=== PATIENT | female | born 1945 | race Caucasian/White ===

== ENCOUNTER 2016-03-30 10:13 | Inpatient (IN) | payer OTHER ==
[~2016-03-30] VITALS: Ht 157.5 cm; Wt 58.5 kg
[~2016-03-30 10:13] MED LIST: ALBUTEROL2.5 MG/3 M INH; ASPIRIN EC81 M1 PO; ATELVIA PO; ATIVAN0.5 M1 PO; BIOTIN2500 MCG PO; COZAAR25 M1 PO; CYCLOBENZAPRINE10 M3 PO; DAILY MULTIPLE1 EACH PO; DILAUDID2 MG PO; FENOFIBRATE160 M1 PO; FLEXERIL10 MG PO; FUROSEMIDE20 M1 PO; HYDROMORPHONE HC2 MG PO; LEVOTHYROXIN0.025 MG PO; LEVOTHYROXIN0.088 M1 PO; LEVOTHYROXINE75 MCG PO; LOSARTAN POTASS25 MG PO; LYRICA100 MG PO; LYRICA150 MG PO; LYRICA75 MG PO; METOPROLOL SUCC50 M2 PO; NAPROXEN500 MG PO; OMEGA-3 300 MG-1 SGL PO; OMEGA-31 SGL PO; OXYCONTIN10 MG PO; PERCOCET 325 MG1 TA2 PO; PREDNISONE10 M2 PO; PREDNISONE10 MG PO; PREDNISONE2.5 MG PO; PROAIR HFA8.5 GM INH; RITE AID KRILL500 MG PO; SELENIUM200 MCG PO; SPIRIVA18 MCG INH; STOOL SOFTENER100 M3 PO; SYMBICORT 16010.2 GM INH; URSODIOL300 M1 PO; URSODIOL300 MG PO; URSODIOL500 MG PO; VALIUM5 M1 PO; VITAMIN C500 M6 PO; VITAMIN D2 PO; VITAMIN D250000 UNIT PO; WELCHOL 625 MG625 MG PO; ZETIA10 M1 PO
--- NOTE | 2016-03-30 10:26 | ED DYSPNEA/ASTHMA COMPLAINT ---
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 Source: patient Exam Limitations: no limitations Vital Signs & Intake/Output Vital Signs & Intake/Output Vital Signs Date Time Temp Pulse Resp B/P Pulse O2 O2 Flow FiO2 Ox Delivery Rate 04/01 1008 97 Nasal 2.0L Cannula 04/01 0832 81 144/80 04/01 0832 81 144/80 04/01 0825 97.6 81 18 144/80 95 Nasal 2.0L Cannula 04/01 0007 98.2 81 18 106/70 97 Nasal 2.0L Cannula 04/01 0000 Nasal 2.0L Cannula 03/31 2043 96 Nasal 2.0L Cannula 03/31 1659 96 Nasal 2.0L Cannula 03/31 1554 98.2 75 19 102/62 96 Nasal 2.0L Cannula ED Intake and Output 04/01 0000 03/31 1200 Intake Total 800 240 Output Total 800 Balance 0 240 Intake, Oral 800 240 Output, Urine 800 Allergies Coded Allergies: azathioprine (Severe, NAUSEA 05/13/15) oxycodone (Severe, ITCHING 05/13/15) risedronate sodium (Severe, PT OKAY WITH ATELVIA, COLD SWEATS, SEVERE N/D ) sulfamethoxazole (From BACTRIM) (Severe, NAUSEA, DIARRHEA AND FREQUENT URINATION 05/13/15) trimethoprim (From BACTRIM) (Severe, NAUSEA, DIARRHEA AND FREQUENT URINATION ) Reconcile Medications Albuterol Sulfate (Proair Hfa) 90 MCG HFA.AER.AD 2 PUF INH Q4-6 PRN PRN BREATHING (Reported) Albuterol Sulfate 2.5 MG/3 ML (0.083 %) VIAL.NEB 1 VIAL INH TID BREATHING PROBLEMS (Reported) Ascorbate Calcium (Vitamin C) 500 MG TABLET 1 TAB PO DAILY SUPPLEMENT ( Reported) Aspirin (Ecotrin*) 81 MG TABLET.DR 1 TAB PO DAILY HEART HEALTH (Reported) Biotin 2,500 MCG CAPSULE 2 CAP PO DAILY SUPPLEMENT (Reported) Budesonide/Formoterol Fumarate (Symbicort 160-4.5 Mcg Inhaler) 160 MCG-4.5 MCG/ ACTUATION HFA.AER.AD 2 PUF INH BID COPD (Reported) Docusate Sodium (Stool Softener) 100 MG CAPSULE 2 CAP PO DAILY CONSTIPATION ( Reported) Ergocalciferol (Vitamin D2) (Vitamin D2) 50,000 UNIT CAPSULE 1 CAP PO Q 2 WEEKS SUPPLEMENT (Reported) Ezetimibe (Zetia) 10 MG TABLET 1 TAB PO DAILY CHOLESTEROL (Reported) Fenofibrate 50 MG CAPSULE 1 CAP PO DAILY CHOLESTEROL (Reported) Furosemide 20 MG TABLET 1 TAB PO DAILY PRN LEG SWELLING (Reported) Krill/Om-3/Dha/Epa/Phospho/Ast (Megared [place]-3 Krill Oil Sfgl) 300-90-24 CAPSULE 1 CAP PO DAILY SUPPLEMENT (Reported) Levothyroxine Sodium 75 MCG TABLET 1 TAB PO DAILY AC THYROID (Reported) Lorazepam (Ativan) 0.5 MG TABLET 1 TAB PO DAILY NEEDED PRN ANXIETY ( Reported) Losartan Potassium (Cozaar) 25 MG TABLET 1 TAB PO DAILY BP (Reported) Metoprolol Succinate 50 MG TAB.ER.24H 1 TAB PO DAILY HTN (Reported) Multivitamin (Daily Multiple Vitamin) 1 EACH TABLET 1 TAB PO DAILY SUPPLEMENT (Reported) Prednisone 10 MG TABLET 1 TAB PO SEE ADMIN CRITERIA Steroid taper 40 MG 01/14/16-01/15/16 30 MG 01/16/16-01/18/16 20 MG 01/19/16-01/21/16 10 MG 01/22/16-01/24/16 Then continue with home dose of prednisone 5 MG daily. Pregabalin (Lyrica) 150 MG CAPSULE 1 CAP PO BID NEUROPATHY (Reported) Risedronate Sodium (Atelvia) 35 MG TABLET.DR 1 TAB PO QSUN BOWEL HEALTH ( Reported) after food with at least 4 ounces of plain water Selenium 200 MCG CAPSULE 1 CAP PO DAILY SUPPLEMENT (Reported) Tiotropium [place] (Spiriva) 18 MCG CAP.W.DEV 1 CAP INH DAILY BREATHING PROBLEMS (Reported) Ursodiol 300 MG CAPSULE 3 CAP PO QPM LIVER (Reported) Triage Nurses Notes Reviewed? yes Onset: Gradual Duration: day(s): (3), worse persistent since (LAST NIGHT) Timing: recent history Severity: severe Activities at Onset: none Associated Symptoms: cough, SHORTNESS OF BREATH HPI: This is a 70 year old female who presents to the ER with chief complaint of worsening shrotness obf breath that started gradually 3 days ago but got very severe since last night. Positive cough, no sputum. Denies any fever or chills. Last night she was unable to sleep secondary to respiratory distress. She tried using her nebulizaers without any relief. Denies chest pain or palpiatations. She smokes 1 PPD. Past History Travel History Traveled to [place] past 21 day No Medical History Any Pertinent Medical History? see below for history Neurological: NONE EENT: NONE Cardiovascular: CAD ( CT 2006 3 NON METAL STENTS), hypertension, hyperlipidemia Respiratory: COPD Gastrointestinal: GERD, PANCREATITIS, ISCHEMIC COLITIS Hepatic: AUTOIMMUNE HEPATITIS PRIMARY BILIARY CIRHOSIS Renal: NONE Musculoskeletal: osteoporosis, THORACIC OUTLET SYNDROME,FIBROMYALGIA Psychiatric: anxiety Endocrine: hypothyroidism Blood Disorders: NONE Cancer(s): SKIN CA (REMOVED) DIRECTOR OF ENROLLMENT/Reproductive: NONE Other Medical Hx: Past medical history, surgical history, medications, allergies, social history, family history and review of systems are reviewed above, detailed elsewhere in this consult note, or covered in the emergency department and medical service initial admission history and physical reports and subsequent evaluation documents. Refer elsewhere in this and other documents for additional details. There is no other information in these categories that I am aware of which is directly pertinent to the patient's current orthopaedic hip consultation evaluation and management. Additional Functional History: Refer to the History Of Present Illness (HPI) section of this document or other inpatient and outpatient medical records for details regarding the patient s previous functional status and deficits. By her current report she did not have any prior difficulty with ambulation or need for an ambulatory aid. Currently she is cane dependent because of hip pain. History of MRSA: Yes History of VRE: No History of CDIFF: No Surgical History Surgical History: spinal fusion Psychosocial History Who do you live with Spouse Services at Home None What is your primary language Trinidadian Family History Family History, If Any: FATHER Diabetes mellitus FH: CAD (coronary artery disease) Hx Contributory? No Review of Systems Review of Systems Constitutional: Denies: chills, fever. EENTM: Reports: no symptoms. Respiratory: Reports: cough, short of breath. Denies: sputum production. Cardiovascular: Denies: chest pain, palpitations. GI: Denies: abdominal pain, nausea, vomiting. Genitourinary: Denies: discharge, dysuria. Musculoskeletal: Reports: no symptoms. Skin: Reports: no symptoms. Neurological/Psychological: Reports: anxiety. Hematologic/Endocrine: Denies: bruising, bleeding, polyuria, polydipsia. Immunologic/Allergic: Denies: splenectomy. All Other Systems: Reviewed and Negative Physical Exam Physical Exam General Appearance: well developed/nourished, alert, awake, anxious Head: atraumatic, normal appearance Eyes: Bilateral: normal appearance, PERRL, EOMI. Ears, Nose, Throat: normal pharynx, normal ENT inspection, hearing grossly normal Neck: normal inspection, supple Respiratory: accessory muscle use, wheezing, respiratory distress Cardiovascular: tachycardia Peripheral Pulses: 2+ radial (R), 2+ radial (L) Gastrointestinal: normal bowel sounds Neurologic/Psych: no motor/sensory deficits, awake, alert, oriented x 3 Skin: intact Core Measures ACS in differential dx? No Severe Sepsis Present: No Septic Shock Present: No Progress Differential Diagnosis: asthma, bronchitis, CHF, COPD, pulmonary embolism, pneumonia, pneumothorax Plan of Care: Orders Procedure Date/time Status CBC WITHOUT DIFFERENTIAL 04/01 0802 Active Regular Diet 03/31 L Active AEROSOL CHG 03/31 UNK Complete OXYGEN 03/31 UNK Complete OXYGEN DAILY CHARGE 03/31 UNK Complete Current Medications Sig/Tootie Start time Last Medication Dose Stop Time Status Admin Acetaminophen 650 MG Q6P PRN 03/30 1245 AC (Tylenol) Albuterol Sulfate 2 PUF Q4-6 PRN PRN 03/30 1245 AC (Ventolin) DUONEB X 2, IV SOLUMEDROL GIVEN. PATIENT STILL SHORT OF BREATH. IV MAGNESIUM, IV ABX ORDERED. ADMITTED TO HOSPITALIST SERVICE. (CHANTEL ROSALES,STORMY) Diagnostic Imaging: Viewed by Me: Radiology Read. Discussed w/RAD: Radiology Read. CXR Impression: PATIENT: KAR YOO PRESENT AGE: 70 PATIENT ACCOUNT NO: [id number] : 43 LOCATION: [facility] ORDERING PHYSICIAN: STORMY GOLDEN MD SERVICE DATE: 03/30/16 EXAM TYPE: RAD - XRY -PORTABLE CHEST XRAY EXAMINATION: XR PORTABLE CHEST CLINICAL INFORMATION: Evaluate for pneumonia. COMPARISON: Multiple chest x-rays most recent prior dated 01/09/2016 TECHNIQUE: Portable AP view of the chest was obtained. FINDINGS : Stable Cardia mediastinal silhouette. Stable hyperinflated lungs likely representing underlying COPD. Minor streaky subsegmental atelectasis right lower lung. No acute airspace disease. There is no pleural effusion. Bony thorax is intact. IMPRESSION: Minor subsegmental atelectatic changes right lower lung. No evidence of pneumonia. DICTATED BY: CONRAD ALAN MD DATE/TIME DICTATED:03/30/161101 ASSISTANT PROFESSOR OF SPANISH:GABBI DATE/TIME TRANSCRIBED:03/30/161101 CONFIDENTIAL, DO NOT COPY WITHOUT APPROPRIATE AUTHORIZATION. <Electronically signed in Other Vendor System> SIGNED BY: CONRAD ALAN MD 03/30/161106 Initial ED EKG: SINUS TACHCYARDIA Departure Departure Time of Disposition: 1152 Disposition: STILL A PATIENT Condition: Stable Clinical Impression Primary Impression: COPD with exacerbation Referrals: JESUS ROSALES,MENA (PCP/Family) Departure Forms: Customer Survey General Discharge Information Admission Note Spoke With: PRIMITIVO BURNS MD Documentation of Exam: Documentation of any treatments & extenuating circumstances including Concerns Regarding Discharge (functional status, medication knowledge or non-compliance, living conditions, etc.) that warrant an admission rather than observation: [TRC /NEBS, IV STEROIDS, PULMONARY CONSULTATION, MONITOR I/O, IV ABX, F/U CULTURES] Critical Care Note Critical Care Note Critical Care Time: 75-104 min
--- NOTE | 2016-03-30 10:33 | NUR ---
RT CALLED FOR NEB
--- NOTE | 2016-03-30 10:35 | NUR ---
PT TO ROOM [address] CHANTEL DICKSON AT BEDSIDE. 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 PT PLACED ON O2 VIA NC. SAT IMPROVED FROM 86 ON RA TO 94% ON 2L VIA NC. 20G IV TO RIGHT WRIST .
--- NOTE | 2016-03-30 10:40 | NUR ---
RT AT BEDSIDE FOR TX
[2016-03-30 10:54] LABS: ABSOLUTE BASOPHIL COUNT 0.1 /CUMM (0.0-0.2); ABSOLUTE EOSINOPHIL COUNT 0.1 /CUMM (0.0-0.7); ABSOLUTE GRANULOCYTE CT 11.5 /CUMM (1.4-6.5); ABSOLUTE LYMPH COUNT 1.9 /CUMM (1.2-3.4); ABSOLUTE MONOCYTE COUNT 1.3 /CUMM (0.10-0.60); BASOPHIL % 0.7 % (0.0-2.0); GRANULOCYTE % 76.5 % (42.2-75.2); HEMATOCRIT 45.1 % (37-47); MEAN CORPUSCULAR HGB 27.5 PG (27.0-31.0); MEAN CORPUSCULAR HGB CONC 32.4 G/DL (33.0-37.0); MEAN CORPUSCULAR VOLUME 84.9 FL (81.0-99.0); MEAN PLATELET VOLUME 9.2 FL (7.4-10.4); PLATELET COUNT 299 /CUMM (130-400); RBC DISTRIBUTION WIDTH 15.4 % (11.5-14.5); RED BLOOD CELL CT 5.31 /CUMM (4.20-5.40)
[2016-03-30 11:00] LABS: PT 10.7 SEC (9.4-12.5); PTT 34 SEC (25-37)
--- NOTE | 2016-03-30 11:06 | NUR ---
DR GOLDEN IN TO SEE PT. ADDITIONAL DUONEB ORDERED. RT AT BEDSIDE TO GIVE TX. FLU SWAB DONE. PT WITH LABORED BREATHING. O2 SAT PRIOR TO DUONEB 95% ON O2
--- NOTE | 2016-03-30 11:07 | RADIOLOGY REPORT ---
EXAMINATION: XR PORTABLE CHEST CLINICAL INFORMATION: Evaluate for pneumonia. COMPARISON: Multiple chest x-rays most recent prior dated 01/09/2016 TECHNIQUE: Portable AP view of the chest was obtained. FINDINGS: Stable Cardia mediastinal silhouette. Stable hyperinflated lungs likely representing underlying COPD. Minor streaky subsegmental atelectasis right lower lung. No acute airspace disease. There is no pleural effusion. Bony thorax is intact. IMPRESSION: Minor subsegmental atelectatic changes right lower lung. No evidence of pneumonia.
--- NOTE | 2016-03-30 11:11 | NUR ---
RT AT BEDSIDE FOR SECOND TX
--- NOTE | 2016-03-30 11:15 | NUR ---
CAME IN FROM HOME WITH SOB. HISTORY OF COPD,AND CURRENT SMOKER. STATES SHE STARTED HAVING TROUBLE BREATHING PAST FEW DAYS AND IT GOT WORSE LAST NIGHT. LABORED BREATHING, WHEEZING. AWAKE, ALERT
--- NOTE | 2016-03-30 11:21 | NUR ---
RECIEVED REPORT FROM NING, ASSUMED CARE OF PT
[2016-03-30] MEDS ORDERED: FENOFIBRATE50 MG PO (11:39)
[2016-03-30] MEDS ORDERED: MEGARED OMEGA-1 EAC2 PO (11:41)
[2016-03-30] MEDS ORDERED: LYRICA150 M1 PO (11:45)
--- NOTE | 2016-03-30 11:50 | NUR ---
1GM MAGNESIUM INFUSING PER ORDER DR GOLDEN. VITALS TAKEN. PT GIVEN ICE CHIPS DUE TO DRY MOUTH
--- NOTE | 2016-03-30 12:14 | NUR ---
PT FEELS SOME BETTER AFTER MAGNESIUM BUT STILL WITH LABORED BREATHING. HOUSE STAFF IN TO SEE PT
--- NOTE | 2016-03-30 12:20 | NUR ---
RT IN TO DRAWN ABGS
--- NOTE | 2016-03-30 12:22 | History & Physical ---
ALYCIA ROSALES,JAMIE 03/30/16 1222: General Information and HPI MD Statement: I have seen and personally examined KAR YOO and documented this H& P. The patient is a 70 year old F who presented with a patient stated chief complaint of [shortness of breath]. Source of Information: patient, old records Exam Limitations: no limitations History of Present Illness: This is a 70-year-old lady with a past medical history significant for severe COPD, not on home oxygen, coronary artery disease status post stenting in 2006 after a myocardial infarction, hyperlipidemia, GERD, history of GI bleed, hypothyroidism, 60+ pack year smoking history, previous admissions at [facility] for COPD exacerbation, presented to the emergency room with acute shortness of breath. Patient states that her symptoms started yesterday evening and she thought that she was having a COPD exacerbation, she tried using her nebulizer and inhaler with minimal relief, shortness of breath did exacerbate this morning and she presented to the emergency room. Her only major complaint of shortness of breath, she denies any chest pain, nausea, vomiting, diarrhea, fevers, chills, recent illnesses or sick contacts. Per the emergency room physician upon presenting to the emergency room, she was noted to use excessively muscles and in hypoxic respiratory failure. Since receiving nebulizer treatment, IV steroids and magnesium her pulmonary status has much improved. Allergies/Medications Allergies: Coded Allergies: azathioprine (Severe, NAUSEA 05/13/15) oxycodone (Severe, ITCHING 05/13/15) risedronate sodium (Severe, PT OKAY WITH ATELVIA, COLD SWEATS, SEVERE N/D ) sulfamethoxazole (From BACTRIM) (Severe, NAUSEA, DIARRHEA AND FREQUENT URINATION 05/13/15) trimethoprim (From BACTRIM) (Severe, NAUSEA, DIARRHEA AND FREQUENT URINATION ) Home Med list Albuterol Sulfate (Proair Hfa) 90 MCG HFA.AER.AD 2 PUF INH Q4-6 PRN PRN BREATHING (Reported) Albuterol Sulfate 2.5 MG/3 ML (0.083 %) VIAL.NEB 1 VIAL INH TID BREATHING PROBLEMS (Reported) Ascorbate Calcium (Vitamin C) 500 MG TABLET 1 TAB PO DAILY SUPPLEMENT ( Reported) Aspirin (Ecotrin*) 81 MG TABLET.DR 1 TAB PO DAILY HEART HEALTH (Reported) Biotin 2,500 MCG CAPSULE 2 CAP PO DAILY SUPPLEMENT (Reported) Budesonide/Formoterol Fumarate (Symbicort 160-4.5 Mcg Inhaler) 160 MCG-4.5 MCG/ ACTUATION HFA.AER.AD 2 PUF INH BID COPD (Reported) Docusate Sodium (Stool Softener) 100 MG CAPSULE 2 CAP PO DAILY CONSTIPATION ( Reported) Ergocalciferol (Vitamin D2) (Vitamin D2) 50,000 UNIT CAPSULE 1 CAP PO Q 2 WEEKS SUPPLEMENT (Reported) Ezetimibe (Zetia) 10 MG TABLET 1 TAB PO DAILY CHOLESTEROL (Reported) Fenofibrate 50 MG CAPSULE 1 CAP PO DAILY CHOLESTEROL (Reported) Furosemide 20 MG TABLET 1 TAB PO DAILY PRN LEG SWELLING (Reported) Krill/Om-3/Dha/Epa/Phospho/Ast (Megared [place]-3 Krill Oil Sfgl) 300-90-24 CAPSULE 1 CAP PO DAILY SUPPLEMENT (Reported) Levothyroxine Sodium 75 MCG TABLET 1 TAB PO DAILY AC THYROID (Reported) Lorazepam (Ativan) 0.5 MG TABLET 1 TAB PO DAILY NEEDED PRN ANXIETY ( Reported) Losartan Potassium (Cozaar) 25 MG TABLET 1 TAB PO DAILY BP (Reported) Metoprolol Succinate 50 MG TAB.ER.24H 1 TAB PO DAILY HTN (Reported) Multivitamin (Daily Multiple Vitamin) 1 EACH TABLET 1 TAB PO DAILY SUPPLEMENT (Reported) Prednisone 10 MG TABLET 1 TAB PO SEE ADMIN CRITERIA Steroid taper 40 MG 01/14/16-01/15/16 30 MG 01/16/16-01/18/16 20 MG 01/19/16-01/21/16 10 MG 01/22/16-01/24/16 Then continue with home dose of prednisone 5 MG daily. Pregabalin (Lyrica) 150 MG CAPSULE 1 CAP PO BID NEUROPATHY (Reported) Risedronate Sodium (Atelvia) 35 MG TABLET. 1 TAB PO QSUN BOWEL HEALTH ( Reported) after food with at least 4 ounces of plain water Selenium 200 MCG CAPSULE 1 CAP PO DAILY SUPPLEMENT (Reported) Tiotropium [place] (Spiriva) 18 MCG CAP.W.DEV 1 CAP INH DAILY BREATHING PROBLEMS (Reported) Ursodiol 300 MG CAPSULE 3 CAP PO QPM LIVER (Reported) Past History Travel History Traveled to [place] past 21 day No Medical History Neurological: NONE EENT: NONE Cardiovascular: CAD ( [place] 2006 3 NON METAL STENTS), hypertension, hyperlipidemia Respiratory: COPD Gastrointestinal: GERD, PANCREATITIS, ISCHEMIC COLITIS Hepatic: AUTOIMMUNE HEPATITIS PRIMARY BILIARY CIRHOSIS Renal: NONE Musculoskeletal: osteoporosis, THORACIC OUTLET SYNDROME,FIBROMYALGIA Psychiatric: anxiety Endocrine: hypothyroidism Blood Disorders: NONE Cancer(s): SKIN CA (REMOVED) ENT NURSE/Reproductive: NONE Other Medical Hx: Past medical history, surgical history, medications, allergies, social history, family history and review of systems are reviewed above, detailed elsewhere in this consult note, or covered in the emergency department and medical service initial admission history and physical reports and subsequent evaluation documents. Refer elsewhere in this and other documents for additional details. There is no other information in these categories that I am aware of which is directly pertinent to the patient's current orthopaedic hip consultation evaluation and management. Additional Functional History: Refer to the History Of Present Illness (HPI) section of this document or other inpatient and outpatient medical records for details regarding the patient s previous functional status and deficits. By her current report she did not have any prior difficulty with ambulation or need for an ambulatory aid. Currently she is cane dependent because of hip pain. History of MRSA: Yes History of VRE: No History of CDIFF: No Surgical History Surgical History: spinal fusion ECHO Results (as available) Date of last Echo 01/05/11 EF% 55 Past Family/Social History Family History Relations & Conditions if any FATHER Diabetes mellitus FH: CAD (coronary artery disease) Psychosocial History Who Do You Live With? spouse Services at Home: None Primary Language: Greek ETOH Use: denies use Illicit Drug Use: denies illicit drug use Functional Ability ADLs Independent: dressing, eating, toileting, bathing. Ambulation: independent IADLs Independent: shopping, housework, finances, food prep, telephone, transportation , medication admin. Review of Systems Review of Systems Constitutional: Reports: see HPI. Exam & Diagnostic Data Last 24 Hrs of Vital Signs/I&O Vital Signs Date Time Temp Pulse Resp B/P Pulse O2 O2 Flow FiO2 Ox Delivery Rate 03/30 1151 98.2 112 24 126/58 94 Nasal Cannula 03/30 1108 96 Nasal 2.0L Cannula 03/30 1044 96 Nasal 2.0L Cannula 03/30 1037 144/80 03/30 1026 98.6 89 26 86 Room Air 03/30 1015 166/100 Physical Exam General Appearance Alert, Oriented X3, Cooperative, Mild Distress Skin ecchymosis on left wrist and left jordan HEENT Atraumatic, PERRLA, EOMI Cardiovascular Regular Rate, Normal S1, Normal S2 Lungs diffuse wheezing and decreased air entry b/l Abdomen Normal Bowel Sounds, Soft, No Tenderness Neurological Normal Speech, Strength at 5/5 X4 Ext Extremities No Clubbing, No Cyanosis, No Edema Last 24 Hrs of Labs/Erasmo: Laboratory Tests 03/30/16 1030: Anion Gap 12, Estimated GFR > 60, BUN/Creatinine Ratio 12.9, Glucose 102 H, Lactic Acid 1.1, Calcium 9.6, Total Bilirubin 0.4, AST 32, ALT 39, Alkaline Phosphatase 116, Troponin I < 0.01, Total Protein 7.0, Albumin 4.1, Globulin 2.9 , Albumin/Globulin Ratio 1.4, PT 10.7, INR 1.02, APTT 34, CBC w Diff NO MAN DIFF REQ, RBC 5.31, MCV 84.9, MCH 27.5, RDW 15.4 H, MPV 9.2, Gran % 76.5 H, Lymphocytes % 12.8 L, Monocytes % 9.0, Eosinophils % 1.0, Basophils % 0.7, Absolute Granulocytes 11.5 H, Absolute Lymphocytes 1.9, Absolute Monocytes 1.3 H, Absolute Eosinophils 0.1, Absolute Basophils 0.1, PUBS MCHC 32.4 L Microbiology 03/30 1037 BLOOD: Blood Culture - RECD 03/30 1030 BLOOD: Blood Culture - RECD 03/30 1025 LOWER RESP: Respiratory Culture - ORD 03/30 1025 LOWER RESP: Gram Stain - ORD Diagnostic Data EKG Results Rate 126, MS 127, QRS 84, QTC 481 Sinus tachycardia CXR Results IMPRESSION: Minor subsegmental atelectatic changes right lower lung. No evidence of pneumonia. Assessment/Plan Assessment: Assessment- 1. Hypoxic respiratory failure, secondary to COPD exacerbation 2. COPD exacerbation 3. Leukocytosis, likely reactive versus secondary to chronic steroid use 4. Myocardial infarction, history of drug-eluting stent placement in 2006 5. Nicotine use, 60+ pack year smoking history, current use 1 pack per day 6. Hyperlipidemia 7. Hypothyroidism 8. GERD 9. Gout Plan- Admit to general med Vitals per protocol Panculture, flu swab IV steroid Solu-Medrol 40 every 8 Accu-Cheks IV azithromycin ABG Sputum culture TRC evaluation with total pulmonary toilet Continue nebulizer and inhalers Supplemental oxygen to maintain an oxygen saturation between 90 and 94% Will consider pulmonary evaluation Continue all home meds Pain pathway Heart healthy diet DVT prophylaxis with Alps and subcutaneous heparin Full code As Ranked By This Provider Problem List: 1. COPD exacerbation 2. Full code status 3. Pneumonia 4. Fibromyalgia syndrome 5. Anxiety disorder 6. COPD 7. COPD EXACERBATION Core Measures/Miscellaneous Acute Coronary Syndrome ACS Diagnosis: No Cerebrovascular Accident CVA/TIA Diagnosis: No Congestive Heart Failure CHF Diagnosis: No Venous Thromboembolism VTE Risk Factors: Age > 40, Smoking VTE Prophylaxis Ordered Inpt: Pharm- Heparin No Mech VTE prophylaxis d/t: No contraindications No VTE Pharm Prophylaxis d/t: No contraindications VTE Diagnosis: No VTE Type: NONE VTE Confirmed by (Test): NONE Severe Sepsis Severe Sepsis Present: No Septic Shock Septic Shock Present: No Miscellaneous Documentation Attending Case Discussed With: Dr. Cortes Primary Care Physician: MENA LEE MD Patient sees these Specialists Dr. Garry [place] (Cardio) Level of Patient Care: General Medicine Resident Review Statement Resident Statement: examined this patient AMANDA CORTES MD 03/30/16 1402: Attending MD Review Statement Attending Statement Attending MD Statement: examined this patient, discuss w/resident/PA/PUBLIC POLICY ANALYST, agreed w/resident/PA/PUBLIC POLICY ANALYST, reviewed EMR data (avail), discussed with nursing, reviewed images, amended to note Attending Assessment/Plan: The patient is a 70 yo female with h/o severe COPD, CAD (s/p [place] & stents 2006), HL, GERD, GI bleeding, & hypothyroid who presented in the [place] ED with increased dyspnea and cough x 1 day. She was found to be hypoxic and in acute hypoxic respiratory failure. She continues to smoke 1 ppd cigarettes at home. Denies fever, chills, purulent sputum, etc. Last admit was 12/31. She sees Dr. Castañeda as OP. Physical Exam: VS: T 98.6, R 26-24, P 89, BP 166/100-126/58, PO 86%-94% HEENT: eyes- PERRLA, EOMI bisi- dry mucosa w/o lesions Neck: no JVD or bruits Chest: diminished breath sounds with mild expiratory wheeze at time of my exam ( post Rx) Cor: RRR, nl S1, S2, w/o murm Abd: BS+, soft, NT Ext: no significant edema, pulses 1+ Neuro: alert & oriented x 3, non-focal Labs/Tests- as above Impression/Plan: #Acute Hypoxic Respiratory Failure- with PO 86% on RA. 1 day of symptoms. Plan: Admit to medical floor. IV Medrol, Zithromax, aerosol as per protocol. Close respiratory monitoring- nasal oxygen #Acute COPD Exacerbation- as above, 1 day of symptoms. Plan: Treatment as above. Pulmonary consult- Dr. Castañeda. #Essential Hypertension/CAD- has been stable. Plan: Continue Losartan, Metoprolol, ASA, etc. #Hyperlipidemia- on Ezetimide/Fenofibrate Plan: Continue usual meds. #Anxiety- patient is on Lorazepam prn. May have increased anxiety while on steroids. Plan: Please do CTPMP check to see how much she is actually taking. #Nicotine Dependence- still smoking 1 PPD cigarettes. Has tried Chantix, patch and gum. Plan: Patient wishes to try Nicotine Lozenges. #Hypothyroid- on Levothyroxine. Clinically euthyroid. Plan: Continue Levothyroxine.
--- NOTE | 2016-03-30 12:53 | NUR ---
BED 201-1
--- NOTE | 2016-03-30 13:30 | NUR ---
REPORT CALLED TO [facility]. SPOKE WITH SUPERVISOR ESTIMATOR AND DRAFTER ON UNIT AND THEY STATE THEY ARE AWARE PT IS ON ISOLATION
--- NOTE | 2016-03-30 13:31 | NUR ---
DAVION CHAIREZ PT HAS ORDERS FOR URINE SPECIMEN
--- NOTE | 2016-03-30 14:01 | Admission Certification ---
Admission Certification Certification Statement - As attending physician, I certify that at the time of - admission, based on clinical presentation, severity of - symptoms, need for further diagnostic testing and - therapeutic interventions, and risk of adverse outcomes - without in-hospital treatment, in my clinical assessment, - this patient requires an acute hospital stay for a minimum - of two nights or longer. I have also considered psychsocial - factors such as support system, advanced age, financial - issues, cognitive issues, and failed out-patient treatments, - past re-admission history, safety of patient, and lack of - compliance as applicable. Specific rationale supporting this admission is: Patient being admitted with acute COPD exacerbation with acute hypoxic respiratory failure. Needs aerosol, IV Medrol, Zitrhomax, pulmonary evaluation ( Dr. Castañeda).
[2016-03-30 14:10] VITALS: BP 112/60
[2016-03-30 15:37] VITALS: BP 100/60
--- NOTE | 2016-03-30 16:50 | Cons- Pulmonary ---
General Information and HPI Consulting Request Date of Consult: 03/30/16 Requested By: Dr. Cortes Reason for Consult: COPD exacerbation Source of Information: patient, family Exam Limitations: no limitations History of Present Illness: The patient is a 70-year-old female well-known to me from previous outpatient visits and hospitalizations. She has a PMH significant for severe, non-oxygen dependent COPD with ongoing tobacco use (up to 1 pack per day). She has had admissions in the past for COPD exacerbations. 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 The patient was admitted with a one-day history of increased shortness of breath in association with cough, chest congestion and wheezing. The patient tried to use her nebulizer at home without relief. Because her symptoms continue to worsen, the patient presented to the emergency department. In the ED, the patient was in significant respiratory distress requiring multiple nebulizer treatments, magnesium and IV steroids. She had a chest x-ray that showed minor subsegmental Maykel changes at the right lung base without evidence of pneumonia. The patient was admitted, started on IV Solu-Medrol and IV azithromycin as well as nebs/TRC. She reports feeling slightly improved today but is not close to her baseline. Allergies/Medications Allergies: Coded Allergies: azathioprine (Severe, NAUSEA 05/13/15) oxycodone (Severe, ITCHING 05/13/15) risedronate sodium (Severe, PT OKAY WITH ATELVIA, COLD SWEATS, SEVERE N/D ) sulfamethoxazole (From BACTRIM) (Severe, NAUSEA, DIARRHEA AND FREQUENT URINATION 05/13/15) trimethoprim (From BACTRIM) (Severe, NAUSEA, DIARRHEA AND FREQUENT URINATION ) Home Med List: Albuterol Sulfate (Proair Hfa) 90 MCG HFA.AER.AD 2 PUF INH Q4-6 PRN PRN BREATHING (Reported) Albuterol Sulfate 2.5 MG/3 ML (0.083 %) VIAL.NEB 1 VIAL INH TID BREATHING PROBLEMS (Reported) Ascorbate Calcium (Vitamin C) 500 MG TABLET 1 TAB PO DAILY SUPPLEMENT ( Reported) Aspirin (Ecotrin*) 81 MG TABLET.DR 1 TAB PO DAILY HEART HEALTH (Reported) Biotin 2,500 MCG CAPSULE 2 CAP PO DAILY SUPPLEMENT (Reported) Budesonide/Formoterol Fumarate (Symbicort 160-4.5 Mcg Inhaler) 160 MCG-4.5 MCG/ ACTUATION HFA.AER.AD 2 PUF INH BID COPD (Reported) Docusate Sodium (Stool Softener) 100 MG CAPSULE 2 CAP PO DAILY CONSTIPATION ( Reported) Ergocalciferol (Vitamin D2) (Vitamin D2) 50,000 UNIT CAPSULE 1 CAP PO Q 2 WEEKS SUPPLEMENT (Reported) Ezetimibe (Zetia) 10 MG TABLET 1 TAB PO DAILY CHOLESTEROL (Reported) Fenofibrate 50 MG CAPSULE 1 CAP PO DAILY CHOLESTEROL (Reported) Furosemide 20 MG TABLET 1 TAB PO DAILY PRN LEG SWELLING (Reported) Krill/Om-3/Dha/Epa/Phospho/Ast ([place]-3 Krill Oil Sfgl) 300-90-24 CAPSULE 1 CAP PO DAILY SUPPLEMENT (Reported) Levothyroxine Sodium 75 MCG TABLET 1 TAB PO DAILY AC THYROID (Reported) Lorazepam (Ativan) 0.5 MG TABLET 1 TAB PO DAILY NEEDED PRN ANXIETY ( Reported) Losartan Potassium (Cozaar) 25 MG TABLET 1 TAB PO DAILY BP (Reported) Metoprolol Succinate 50 MG TAB.ER.24H 1 TAB PO DAILY HTN (Reported) Multivitamin (Daily Multiple Vitamin) 1 EACH TABLET 1 TAB PO DAILY SUPPLEMENT (Reported) Prednisone 10 MG TABLET 1 TAB PO SEE ADMIN CRITERIA Steroid taper 40 MG 01/14/16-01/15/16 30 MG 01/16/16-01/18/16 20 MG 01/19/16-01/21/16 10 MG 01/22/16-01/24/16 Then continue with home dose of prednisone 5 MG daily. Pregabalin (Lyrica) 150 MG CAPSULE 1 CAP PO BID NEUROPATHY (Reported) Risedronate Sodium (Atelvia) 35 MG TABLET. 1 TAB PO QSUN BOWEL HEALTH ( Reported) after food with at least 4 ounces of plain water Selenium 200 MCG CAPSULE 1 CAP PO DAILY SUPPLEMENT (Reported) Tiotropium [place] (Spiriva) 18 MCG CAP.W.DEV 1 CAP INH DAILY BREATHING PROBLEMS (Reported) Ursodiol 300 MG CAPSULE 3 CAP PO QPM LIVER (Reported) Review of Systems Review of Systems All Other Systems: Reviewed and Negative Past History Travel History Traveled to [place] past 21 day No Medical History Neurological: NONE EENT: NONE Cardiovascular: CAD ( ID [id number] NON METAL STENTS), hypertension, hyperlipidemia Respiratory: COPD Gastrointestinal: GERD, PANCREATITIS, ISCHEMIC COLITIS Hepatic: AUTOIMMUNE HEPATITIS PRIMARY BILIARY CIRHOSIS Renal: NONE Musculoskeletal: osteoporosis, THORACIC OUTLET SYNDROME,FIBROMYALGIA Psychiatric: anxiety Endocrine: hypothyroidism Blood Disorders: NONE Cancer(s): SKIN CA (REMOVED) MARINATOR/Reproductive: NONE Other Medical Hx: Past medical history, surgical history, medications, allergies, social history, family history and review of systems are reviewed above, detailed elsewhere in this consult note, or covered in the emergency department and medical service initial admission history and physical reports and subsequent evaluation documents. Refer elsewhere in this and other documents for additional details. There is no other information in these categories that I am aware of which is directly pertinent to the patient's current orthopaedic hip consultation evaluation and management. Additional Functional History: Refer to the History Of Present Illness (HPI) section of this document or other inpatient and outpatient medical records for details regarding the patient s previous functional status and deficits. By her current report she did not have any prior difficulty with ambulation or need for an ambulatory aid. Currently she is cane dependent because of hip pain. Surgical History Surgical History: spinal fusion Family History Relations & Conditions If Any: FATHER Diabetes mellitus FH: CAD (coronary artery disease) Psychosocial History Where Do You Live? Home Who Do You Live With? spouse Services at Home: None Primary Language: British Smoking Status: Current Everyday Smoker ETOH Use: denies use Illicit Drug Use: denies illicit drug use Functional Ability ADLs Independent: dressing, eating, toileting, bathing. Ambulation: independent IADLs Independent: shopping, housework, finances, food prep, telephone, transportation , medication admin. ECHO Results (as available) Date of last Echo 01/05/11 EF% 55 Exam & Diagnostic Data Last 24 Hrs of Vital Signs/I&O Vital Signs Date Time Temp Pulse Resp B/P Pulse O2 O2 Flow FiO2 Ox Delivery Rate 03/30 1537 96.8 86 20 100/60 96 Nasal 2.0L Cannula 03/30 1410 96.8 95 18 112/60 94 Nasal 2.5L Cannula 03/30 1409 Nasal 2.0L Cannula 03/30 1400 94 Nasal 2.0L Cannula 03/30 1332 98.6 92 22 126/58 97 Nasal Cannula 03/30 1328 95 Nasal Cannula 03/30 1151 98.2 112 24 126/58 94 Nasal Cannula 03/30 1108 96 Nasal 2.0L Cannula 03/30 1044 96 Nasal 2.0L Cannula 03/30 1037 144/80 03/30 1026 98.6 89 26 86 Room Air 03/30 1015 166/100 Intake & Output 03/30 1600 03/30 0800 03/30 0000 Intake Total 300 Output Total Balance 300 Intake, IV 300 Patient 129 lb Weight Physical Exam General Appearance: well developed/nourished, no apparent distress, alert, awake , mild distress Head: atraumatic, normal appearance Eyes: Bilateral: PERRL. Neck: supple Respiratory: quiet respiration, wheezing Cardiovascular: regular rate/rhythm Gastrointestinal: normal bowel sounds, soft, non-tender Extremities: no edema Skin: intact, normal color, warm/dry Last 48 Hrs of Labs/Erasmo: Laboratory Tests 03/30/16 1220: pH 7.38, pCO2 41, pO2 72 L, HCO3 24, ABG O2 Sat (Measured) 91.0 L, Carboxyhemoglobin 4.0, O2 Concentration % 2L, Temperature 98.2, O2 Delivery Method N/C, Phlebotomy Draw Site LEFT RADIAL 03/30/16 1030: Anion Gap 12, Estimated GFR > 60, BUN/Creatinine Ratio 12.9, Glucose 102 H, Lactic Acid 1.1, Calcium 9.6, Total Bilirubin 0.4, AST 32, ALT 39, Alkaline Phosphatase 116, Troponin I < 0.01, Total Protein 7.0, Albumin 4.1, Globulin 2.9 , Albumin/Globulin Ratio 1.4, PT 10.7, INR 1.02, APTT 34, CBC w Diff NO MAN DIFF REQ, RBC 5.31, MCV 84.9, MCH 27.5, RDW 15.4 H, MPV 9.2, Gran % 76.5 H, Lymphocytes % 12.8 L, Monocytes % 9.0, Eosinophils % 1.0, Basophils % 0.7, Absolute Granulocytes 11.5 H, Absolute Lymphocytes 1.9, Absolute Monocytes 1.3 H, Absolute Eosinophils 0.1, Absolute Basophils 0.1, PUBS MCHC 32.4 L Assessment/Plan Impression/Plan: 1. AECOPD. 2. Hypoxemic respiratory failure. 3. Leukocytosis - secondary to steroids. 4. History of ID with drug-eluting stent. 5. Hyperlipidemia. 6. Hypothyroidism. 7. GERD. Recommendations: * Continue nebs/TRC. * Continue IV Solu-Medrol 40 mg every 8 hours. * Continue IV azithromycin. * Follow-up sputum culture results. * Maintain oxygen saturations greater than 92%. * Continue Spiriva and Symbicort. * Continue subcutaneous heparin. * Thank you for allowing me to participate in the care of this patient. I will follow her along with you and provide further recommendations. If you have any comments or questions, please do not hesitate to contact me. Consult Acknowledgment - Thank you for your consult request.
[2016-03-30 23:58] VITALS: BP 106/66
--- NOTE | 2016-03-31 06:52 | PN- Housestaff ---
ALYCIA ROSALES,JAMIE 03/31/16 0646: Subjective Follow-up For: COPD EXACERBATION Complaints: no complaints Subjective: Patient seen and examined, sitting up comfortably in her hospital bed. States she slept well through the night, had bouts of cough however after expectorating phlegm she felt a lot better. Denies any fevers or chills. Review of Systems Constitutional: Reports: see HPI. Objective Last 24 Hrs of Vital Signs/I&O Vital Signs Date Time Temp Pulse Resp B/P Pulse O2 O2 Flow FiO2 Ox Delivery Rate 03/31 0000 Nasal 2.0L Cannula 03/30 2358 97.8 75 18 106/66 97 Nasal 2.0L Cannula 03/30 1710 96 Nasal 3.0L Cannula 03/30 1600 Nasal 2.0L Cannula 03/30 1537 96.8 86 20 100/60 96 Nasal 2.0L Cannula 03/30 1410 96.8 95 18 112/60 94 Nasal 2.5L Cannula 03/30 1409 Nasal 2.0L Cannula 03/30 1400 94 Nasal 2.0L Cannula 03/30 1332 98.6 92 22 126/58 97 Nasal Cannula 03/30 1328 95 Nasal Cannula 03/30 1151 98.2 112 24 126/58 94 Nasal Cannula 03/30 1108 96 Nasal 2.0L Cannula 03/30 1044 96 Nasal 2.0L Cannula 03/30 1037 144/80 03/30 1026 98.6 89 26 86 Room Air 03/30 1015 166/100 Intake & Output 03/31 0800 03/31 0000 03/30 1600 Intake Total 240 480 300 Output Total Balance 240 480 300 Intake, IV 300 Intake, Oral 240 480 Patient 129 lb Weight Physical Exam General Appearance: Alert, Oriented X3, Cooperative, Mild Distress HEENT: Atraumatic, PERRLA, EOMI Neck: Supple, No JVD Cardiovascular: Regular Rate, Normal S1, Normal S2 Lungs: diffuse wheezing, decreased air entry Abdomen: Normal Bowel Sounds, Soft, No Tenderness Neurological: Normal Speech, Strength at 5/5 X4 Ext, Normal Tone, Sensation Intact Extremities: No Clubbing, No Cyanosis, No Edema Current Medications: Current Medications Sig/Tootie Start time Last Medication Dose Route Stop Time Status Admin Acetaminophen 650 MG Q6P PRN 03/30 1245 AC PO Albuterol Sulfate 3 ML EVERY 4 HRS/AWAKE 03/30 1600 AC 03/30 INH 2025 Albuterol Sulfate 2 PUF Q4-6 PRN PRN 03/30 1245 AC INH Albuterol Sulfate 3 ML ONCE ONE 03/30 1115 DC 03/30 INH 03/30 1116 1108 Albuterol Sulfate 3 ML ONCE ONE 03/30 1030 DC 03/30 INH 03/30 1031 1044 Aspirin Buffered 81 MG DAILY 03/31 1000 AC PO Azithromycin 250 MG DAILY 03/31 1000 AC PO Azithromycin 500 MG ONCE ONE 03/30 1215 DC 03/30 Dextrose/Water 250 ML IV 03/30 1314 1244 Budesonide/ 2 PUF BID 03/30 2200 AC 03/30 Formoterol Fumarate INH 2107 Ceftriaxone Sodium 0 .STK-MED ONE 03/30 1205 DC .ROUTE Ceftriaxone Sodium 1,000 MG ONCE ONE 03/30 1130 DC 03/30 IV 03/30 1131 1214 Ezetimibe 10 MG DAILY 03/31 1000 AC PO Fenofibrate 48 MG DAILY 03/31 1000 AC PO Guaifenesin 10 ML Q6P PRN 03/30 2145 AC 03/31 PO 0439 Heparin Sodium 5,000 UNIT Q8 03/30 1400 AC (Porcine) SC Ipratropium [place] 2.5 ML ONCE ONE 03/30 1115 DC 03/30 INH 03/30 1116 1108 Ipratropium [place] 2.5 ML ONCE ONE 03/30 1030 DC 03/30 INH 03/30 1031 1044 Levothyroxine Sodium 0.075 MG DAILY AC 03/31 0700 AC 03/31 PO 0534 Lorazepam 0.5 MG DAILY NEEDED PRN 03/30 1245 AC PO 04/06 1244 Losartan Potassium 25 MG DAILY 03/31 1000 AC PO Magnesium Sulfate 1 GM ONCE ONE 03/30 1145 DC 03/30 Dextrose/Water 100 ML IV 03/30 1544 1158 Magnesium Sulfate 0 .STK-MED ONE 03/30 1133 DC .ROUTE Methylprednisolone 40 MG Q8 03/30 2200 AC 03/31 IV 04/03 1401 0533 Methylprednisolone 0 .STK-MED ONE 03/30 1050 DC .ROUTE Methylprednisolone 125 MG ONCE ONE 03/30 1030 DC 03/30 IV 03/30 1031 1047 Metoprolol Succinate 50 MG DAILY 03/31 1000 AC PO Nicotine 0 .STK-MED ONE 03/30 1336 VA TOP Nicotine 21 MG DAILY 03/30 1236 AC 03/30 TOP 1338 Pregabalin 150 MG BID 03/30 2199 AC 03/30 PO 2106 Tiotropium [place] 1 PUF DAILY 03/31 1000 AC INH Ursodiol 900 MG QPM 03/30 2199 AC 03/30 PO 2106 Last 24 Hrs of Lab/Erasmo Results Last 24 Hrs of Labs/Mics: Laboratory Tests 03/30/16 2100: Urine Color YEL, Urine Clarity CLEAR, Urine pH 6.0, Ur Specific [place] 1.025, Urine Protein TRACE H, Urine Ketones TRACE H, Urine Nitrite NEG, Urine Bilirubin NEG, Urine Urobilinogen 0.2, Ur Leukocyte Esterase NEG, Ur Microscopic SEDIMENT EXAMINED, Urine RBC 25-50 H, Urine WBC RARE, Ur Epithelial Cells FEW, Urine Mucus MOD H, Urine Hemoglobin TRACE-INTACT, Urine Glucose NEG 03/30/16 1325: Lactic Acid Cancelled 03/30/16 1220: pH 7.38, pCO2 41, pO2 72 L, HCO3 24, ABG O2 Sat (Measured) 91.0 L, Carboxyhemoglobin 4.0, O2 Concentration % 2L, Temperature 98.2, O2 Delivery Method N/C, Phlebotomy Draw Site LEFT RADIAL 03/30/16 1030: Anion Gap 12, Estimated GFR > 60, BUN/Creatinine Ratio 12.9, Glucose 102 H, Lactic Acid 1.1, Calcium 9.6, Total Bilirubin 0.4, AST 32, ALT 39, Alkaline Phosphatase 116, Troponin I < 0.01, Total Protein 7.0, Albumin 4.1, Globulin 2.9 , Albumin/Globulin Ratio 1.4, PT 10.7, INR 1.02, APTT 34, CBC w Diff NO MAN DIFF REQ, RBC 5.31, MCV 84.9, MCH 27.5, RDW 15.4 H, MPV 9.2, Gran % 76.5 H, Lymphocytes % 12.8 L, Monocytes % 9.0, Eosinophils % 1.0, Basophils % 0.7, Absolute Granulocytes 11.5 H, Absolute Lymphocytes 1.9, Absolute Monocytes 1.3 H, Absolute Eosinophils 0.1, Absolute Basophils 0.1, PUBS MCHC 32.4 L Microbiology 03/30 2099 URINE ROUT: Legionella Antigen - RES 03/30 2099 URINE ROUT: Streptococcus pneumoniae Antigen (M - RES 03/30 2100 URINE ROUT: Urine Culture - RES 03/30 1037 BLOOD: Blood Culture - RECD 03/30 1030 BLOOD: Blood Culture - RECD 03/30 1025 LOWER RESP: Respiratory Culture - COLB 03/30 1025 LOWER RESP: Gram Stain - COLB Orders Radiology Findings: CXR- IMPRESSION: Minor subsegmental atelectatic changes right lower lung. No evidence of pneumonia. Assessment/Plan Assessment: Assessment- 1. Hypoxic respiratory failure, secondary to COPD exacerbation, Sat 86% on admission 2. COPD exacerbation 3. Leukocytosis, likely reactive versus secondary to chronic steroid use 4. Myocardial infarction, history of drug-eluting stent placement in 2006 5. Nicotine use, 60+ pack year smoking history, current use 1 pack per day 6. Hyperlipidemia 7. Hypothyroidism 8. GERD 9. Gout Plan- Overall, has been maintaining her saturations well on 2 L nasal cannula Will continue IV Solu-Medrol 40 every 8 for today and taper tomorrow Morning labs are pending Continue by mouth azithromycin Continue TRC evaluations, nebulizers, inhalers Continue nicotine patch; consult on cessation Continue chronic home meds All cultures thus far have been negative She did bring up copious amounts of phlegm; nurse instructed to please send it to the lab for evaluation Problem List: 1. Fibromyalgia syndrome 2. COPD exacerbation 3. Leukocytosis 4. Placement of stent in coronary artery 5. Hyperlipidemia 6. Hypothyroidism 7. History of - hypertension Pain Ratin Pain Location: none Pain Goal: Remain pain free Pain Plan: per emr Tomorrow's Labs & Rationales: per emr AMANDA ESQUIVEL MD 03/31/16 1705: Attending MD Review Statement Attending Statement Attending MD Statement: examined this patient, discuss w/resident/PA/CAMPAIGN SPECIALIST, agreed w/resident/PA/CAMPAIGN SPECIALIST, reviewed EMR data (avail), discussed with nursing, amended to note Attending Assessment/Plan: The patient was seen and discussed with house staff. Agree with the plan of care as outlined. Patient states has failed on Nicotine Patch and cannot chew gum. Suggest Nicotine lozenges, however not available here on formulary.
[2016-03-31 08:00] LABS: ABSOLUTE BASOPHIL COUNT 0 /CUMM (0.0-0.2); ABSOLUTE EOSINOPHIL COUNT 0 /CUMM (0.0-0.7); ABSOLUTE GRANULOCYTE CT 10.8 /CUMM (1.4-6.5); ABSOLUTE LYMPH COUNT 1.3 /CUMM (1.2-3.4); BASOPHIL % 0.1 % (0.0-2.0); EOSINOPHIL % 0 % (0-5); GRANULOCYTE % 82.7 % (42.2-75.2); MEAN CORPUSCULAR HGB 27.7 PG (27.0-31.0); MEAN CORPUSCULAR HGB CONC 32.1 G/DL (33.0-37.0); MEAN CORPUSCULAR VOLUME 86.5 FL (81.0-99.0); MEAN PLATELET VOLUME 9.5 FL (7.4-10.4); PLATELET COUNT 244 /CUMM (130-400); RBC DISTRIBUTION WIDTH 15.6 % (11.5-14.5); RED BLOOD CELL CT 4.74 /CUMM (4.20-5.40)
[2016-03-31 08:17] VITALS: BP 100/62
--- NOTE | 2016-03-31 10:39 | PN- Pulmonary ---
MARIO ROSALES,[facility] 03/31/16 1017: Subjective HPI/Critical Care Issues: Follow up: COPD exacerbation Patient was seen and examined today, she continues to complain of shortness of breath (more than her baseline) saturating well on 2 L oxygen 98%, afebrile, rest of vital signs are stable. She has severe cough productive of clear sputum, after each cough spell, she needs to breath slowly and deeply for couple of minutes before she can resume talking. She is able to complete sentences. At night, the cough doesn't bother her, patient has chronic orthopnea, needs to sleep upright to be able to breathe. Patient complaint of muscular chest pain because of the cough, denied palpitation, fever, chills, dizziness, nasal congestion. Objective Current Medications: Current Medications Sig/Tootie Start time Last Medication Dose Route Stop Time Status Admin Acetaminophen 650 MG Q6P PRN 03/30 1245 AC PO Albuterol Sulfate 3 ML EVERY 4 HRS/AWAKE 03/30 1600 AC 03/31 INH 0847 Albuterol Sulfate 2 PUF Q4-6 PRN PRN 03/30 1245 AC INH Albuterol Sulfate 3 ML ONCE ONE 03/30 1115 DC 03/30 INH 03/30 1116 1108 Albuterol Sulfate 3 ML ONCE ONE 03/30 1030 DC 03/30 INH 03/30 1031 1044 Aspirin Buffered 81 MG DAILY 03/31 1000 AC 03/31 PO 0952 Azithromycin 250 MG DAILY 03/31 1000 AC 03/31 PO 0952 Azithromycin 500 MG ONCE ONE 03/30 1215 DC 03/30 Dextrose/Water 250 ML IV 03/30 1314 1244 Benzonatate 100 MG TID 03/31 1000 AC 03/31 PO 0950 Budesonide/ 2 PUF BID 03/30 2200 AC 03/31 Formoterol Fumarate INH 0953 Ceftriaxone Sodium 0 .STK-MED ONE 03/30 1205 DC .ROUTE Ceftriaxone Sodium 1,000 MG ONCE ONE 03/30 1130 DC 03/30 IV 03/30 1131 1214 Ezetimibe 10 MG DAILY 03/31 1000 AC 03/31 PO 0952 Fenofibrate 48 MG DAILY 03/31 1000 AC 03/31 PO 0952 Guaifenesin 10 ML Q6P PRN 03/30 2145 AC 03/31 PO 0439 Heparin Sodium 5,000 UNIT Q8 03/30 1400 AC (Porcine) SC Ipratropium [place] 2.5 ML ONCE ONE 03/30 1115 DC 03/30 INH 03/30 1116 1108 Ipratropium [place] 2.5 ML ONCE ONE 03/30 1030 DC 03/30 INH 03/30 1031 1044 Levothyroxine Sodium 0.075 MG DAILY AC 03/31 0700 AC 03/31 PO 0534 Lorazepam 0.5 MG DAILY NEEDED PRN 03/30 1245 AC PO 04/06 1244 Losartan Potassium 25 MG DAILY 03/31 1000 AC 03/31 PO 0952 Magnesium Sulfate 1 GM ONCE ONE 03/30 1145 DC 03/30 Dextrose/Water 100 ML IV 03/30 1544 1158 Magnesium Sulfate 0 .STK-MED ONE 03/30 1133 DC .ROUTE Methylprednisolone 40 MG Q8 03/30 2200 AC 03/31 IV 04/03 1401 0533 Methylprednisolone 0 .STK-MED ONE 03/30 1050 DC .ROUTE Methylprednisolone 125 MG ONCE ONE 03/30 1030 DC 03/30 IV 03/30 1031 1047 Metoprolol Succinate 50 MG DAILY 03/31 1000 AC 03/31 PO 0952 Nicotine 0 .STK-MED ONE 03/30 1336 DC TOP Nicotine 21 MG DAILY 03/30 1236 AC 03/31 TOP 0950 Pregabalin 150 MG BID 03/30 2200 AC 03/31 PO 0901 Tiotropium [place] 1 PUF DAILY 03/31 1000 AC 03/31 INH 0953 Ursodiol 900 MG QPM 03/30 2200 AC 03/30 PO 2107 Vital Signs & I&O Last 24 Hrs of Vitals and I&O: Vital Signs Date Time Temp Pulse Resp B/P Pulse O2 O2 Flow FiO2 Ox Delivery Rate 03/31 0952 74 100/62 03/31 0952 74 100/62 03/31 0850 98 Nasal 2.0L Cannula 03/31 0817 98.1 74 20 100/62 97 Nasal 2.0L Cannula 03/31 0000 Nasal 2.0L Cannula 03/30 2358 97.8 75 18 106/66 97 Nasal 2.0L Cannula 03/30 1710 96 Nasal 3.0L Cannula 03/30 1600 Nasal 2.0L Cannula 03/30 1537 96.8 86 20 100/60 96 Nasal 2.0L Cannula 03/30 1410 96.8 95 18 112/60 94 Nasal 2.5L Cannula 03/30 1409 Nasal 2.0L Cannula 03/30 1400 94 Nasal 2.0L Cannula 03/30 1332 98.6 92 22 126/58 97 Nasal Cannula 03/30 1328 95 Nasal Cannula 03/30 1151 98.2 112 24 126/58 94 Nasal Cannula 03/30 1108 96 Nasal 2.0L Cannula 03/30 1044 96 Nasal 2.0L Cannula 03/30 1037 144/80 Intake & Output 03/31 1600 03/31 0800 03/31 0000 Intake Total 240 480 Output Total Balance 240 480 Intake, Oral 240 480 Exam General Appearance: well developed/nourished, alert, awake, moderate distress Head: atraumatic, normal appearance Ears, Nose, Throat: normal ENT inspection Respiratory: chest non-tender, decreased breath sounds, accessory muscle use, rhonchi, wheezing Cardiovascular: regular rate/rhythm Abdomen: normal bowel sounds, soft, non-tender Back: normal inspection Extremities: normal capillary refill, left LE chronically larger than right LE + 1 edema left, trace right No calf tenderness Impression/Plan Impression/Plan Impression/Plan: Ms. 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 Impression/Plan: 1. Severe COPD not on home oxygen, current smoker. 2. Hypoxemic respiratory failure. 3. Leukocytosis - secondary to steroids. 4. History of IA with drug-eluting stent. 5. Hyperlipidemia. 6. Hypothyroidism. 7. GERD. Recommendations: * Patient continued to have shortness of breath with severe productive cough, use of accessory muscles but no signs of CO2 retention, bicarbonate 27,28, no tachycardia * Continue IV Solu-Medrol 40 mg every 8 hours * Continue azithromycin 25 mg daily PO to finish total of 5 days, Day #2 * The cannula and Streptococcus pneumonia antigen negative * Sputum cultures pending receipt * Continue Benzonatate * Continue Spiriva and Symbicort * Maintain oxygen saturations greater than 92% * BMP daily and replete potassium, magnesium and phosphorus * Consider repeat chest x-ray * Patient is on nicotine patch, I had a discussion with the patient regarding smoking cessation and other modalities of stress management. Patient's want to quit smoking * DVT prophylaxis subcutaneous heparin JAXON ROSALES,RandeeAndre GILLESPIEA 03/31/16 1357: Impression/Plan Impression/Plan Recommendations: Addendum: I have personally seen and examined the patient and agree with the resident's assessment and plan as above. The patient continues to have ongoing wheezing and coughing spasms. We'll continue her on the current dose of Solu-Medrol as well as all supportive treatments. I agree with adding Melissa Gamez. The patient is agreeable to follow-up with the COPD clinic after discharge. Continue all supportive care for now.
[2016-03-31 15:54] VITALS: BP 102/62
--- NOTE | 2016-03-31 20:21 | Discharge Summary ---
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 Vitals at the time of admission afebrile respiratory rate 2624, pulse 89, blood pressure 166/100, saturating 86% on room air. Physical exam was pertinent for PERRLA, dry mucous membranes, no JVD, chest revealed diminished breath sounds with mild expiratory wheeze, cardiac exam was benign with regular rate and rhythm, normal S1-S2 no murmurs abdominal exam was benign and examination of the extremities revealed 1+ edema. Neuro exam was grossly unremarkable. Labs pertinent for an H&H of 14.6/45.1, white blood cell count of 15,000 and a platelet count of 299,000. Serum chemistries reveal a sodium of 142, potassium of 4.0, BUN 9 and creatinine of 0.7. Serum anion gap was 12, LFTs unremarkable with a total bili of 0.4, AST/ALT of 32/39 and an alkaline phosphatase of 116 first set of troponins negative at 0.01. EKG revealed sinus tachycardia with a heart rate of 126, VA interval 127, QRS 84 and a QTC of 41. Chest x-ray showed minor subsegmental atelectatic changes over right lower lung no evidence of pneumonia. The patient's hospital course is as follows Assessment 1. Acute hypercarbic respiratory failure secondary to COPD exacerbation 2. Baseline end-stage COPD and currently in COPD exacerbation 3. History of myocardial infarction and acute coronary disease status post stent placement in 2006 4.Hyperlipidemia 5. History of hypothyroidism, History of GERD History of gout Hospital course The patient was initially admitted to general medicine floor and was started on IV Solu-Medrol and azithromycin for COPD exacerbation. In the next 48 hours the patient condition deteriorated and and her labs and ABG showed hypercarbia. She was put on BiPAP for the work of breathing and was then transferred to intensive care unit for closer and further monitoring. In the ICU the patient did not respond well to the BiPAP. Her ABG still showed carbon dioxide retention of 62. She was still struggling and using accessory muscles for her work of breathing. A long discussion was then done with the patient's [id number], and the patient herself all agreed that the patient is not in agreement for any aggressive measures and hence her course status was changed to full code to DNR DNI initially and then ultimately to hospice care and comfort measures. She was evaluated by the hospice nurse and then the patient agreed for inpatient hospice. Allergies: Coded Allergies: azathioprine (Severe, NAUSEA 05/13/15) oxycodone (Severe, ITCHING 05/13/15) risedronate sodium (Severe, PT OKAY WITH ATELVIA, COLD SWEATS, SEVERE N/D ) sulfamethoxazole (From BACTRIM) (Severe, NAUSEA, DIARRHEA AND FREQUENT URINATION 05/13/15) trimethoprim (From BACTRIM) (Severe, NAUSEA, DIARRHEA AND FREQUENT URINATION ) Pertinent Lab Results: Laboratory Tests 04/05 04/05 0845 0311 Blood Gas pH (7.35 - 7.45 PH) 7.34 L pCO2 (35 - 45 TORR) 60 *H pO2 (80 - 100 TORR) 83 HCO3 (21 - 28 MEQ/L) 32 H ABG O2 Sat (Measured) (>96.0 %) 94.0 L Carboxyhemoglobin (1.5 - 5.0 %) 0.9 L O2 Concentration % 35% Temperature (97.0 - 100.0 FARH) 98.6 Respiration Rate (BPM) 28 O2 Delivery Method BIPAP Vent Mode ST Expiratory Pressure (CM H2O P) 6 Inspiratory Pressure (CM H2O P) 20 Chemistry Sodium (137 - 145 mmol/L) 138 Potassium (3.5 - 5.1 mmol/L) 5.0 Chloride (98 - 107 mmol/L) 97 L Carbon Dioxide (22 - 30 mmol/L) 32 H Anion Gap (5 - 16) 9 BUN (7 - 17 mg/dL) 35 H Creatinine (0.5 - 1.0 mg/dL) 0.8 Estimated GFR (>60 ml/min) > 60 Glucose (65 - 99 mg/dL) 128 H Calcium (8.4 - 10.2 mg/dL) 9.1 Phosphorus (2.5 - 4.5 mg/dL) 3.8 Magnesium (1.6 - 2.3 mg/dL) 2.2 Total Bilirubin (0.2 - 1.3 mg/dL) 0.5 AST (14 - 36 U/L) 31 ALT (9 - 52 U/L) 39 Albumin (3.5 - 5.0 g/dL) 3.7 Hematology CBC w Diff NO MAN DIFF REQ WBC (4.8 - 10.8 /CUMM) 16.2 H RBC (4.20 - 5.40 /CUMM) 5.31 Hgb (12.0 - 16.0 G/DL) 14.5 Hct (37 - 47 %) 45.3 MCV (81.0 - 99.0 FL) 85.4 MCH (27.0 - 31.0 PG) 27.3 RDW (11.5 - 14.5 %) 15.6 H Plt Count (130 - 400 /CUMM) 309 MPV (7.4 - 10.4 FL) 9.8 Gran % (42.2 - 75.2 %) 88.3 H Lymphocytes % (20.5 - 51.1 %) 8.3 L Monocytes % (1.7 - 9.3 %) 2.9 Eosinophils % (0 - 5 %) 0.1 Basophils % (0.0 - 2.0 %) 0.4 Absolute Granulocytes (1.4 - 6.5 /CUMM) 14.3 H Absolute Lymphocytes (1.2 - 3.4 /CUMM) 1.4 Absolute Monocytes (0.10 - 0.60 /CUMM) 0.5 Absolute Eosinophils (0.0 - 0.7 /CUMM) 0 Absolute Basophils (0.0 - 0.2 /CUMM) 0.1 PUBS MCHC (33.0 - 37.0 G/DL) 32.0 L Miscellaneous Phlebotomy Draw Site RIGHT RADIAL Laboratory Tests 04/05 04/05 3096 1919 Blood Gas pH (7.35 - 7.45 PH) 7.34 L pCO2 (35 - 45 TORR) 60 *H pO2 (80 - 100 TORR) 83 HCO3 (21 - 28 MEQ/L) 32 H ABG O2 Sat (Measured) (>96.0 %) 94.0 L Carboxyhemoglobin (1.5 - 5.0 %) 0.9 L O2 Concentration % 35% Temperature (97.0 - 100.0 FARH) 98.6 Respiration Rate (BPM) 28 O2 Delivery Method BIPAP Vent Mode ST Expiratory Pressure (CM H2O P) 6 Inspiratory Pressure (CM H2O P) 20 Chemistry Sodium (137 - 145 mmol/L) 138 Potassium (3.5 - 5.1 mmol/L) 5.0 Chloride (98 - 107 mmol/L) 97 L Carbon Dioxide (22 - 30 mmol/L) 32 H Anion Gap (5 - 16) 9 BUN (7 - 17 mg/dL) 35 H Creatinine (0.5 - 1.0 mg/dL) 0.8 Estimated GFR (>60 ml/min) > 60 Glucose (65 - 99 mg/dL) 128 H Calcium (8.4 - 10.2 mg/dL) 9.1 Phosphorus (2.5 - 4.5 mg/dL) 3.8 Magnesium (1.6 - 2.3 mg/dL) 2.2 Total Bilirubin (0.2 - 1.3 mg/dL) 0.5 AST (14 - 36 U/L) 31 ALT (9 - 52 U/L) 39 Albumin (3.5 - 5.0 g/dL) 3.7 Hematology CBC w Diff NO MAN DIFF REQ WBC (4.8 - 10.8 /CUMM) 16.2 H RBC (4.20 - 5.40 /CUMM) 5.31 Hgb (12.0 - 16.0 G/DL) 14.5 Hct (37 - 47 %) 45.3 MCV (81.0 - 99.0 FL) 85.4 MCH (27.0 - 31.0 PG) 27.3 RDW (11.5 - 14.5 %) 15.6 H Plt Count (130 - 400 /CUMM) 309 MPV (7.4 - 10.4 FL) 9.8 Gran % (42.2 - 75.2 %) 88.3 H Lymphocytes % (20.5 - 51.1 %) 8.3 L Monocytes % (1.7 - 9.3 %) 2.9 Eosinophils % (0 - 5 %) 0.1 Basophils % (0.0 - 2.0 %) 0.4 Absolute Granulocytes (1.4 - 6.5 /CUMM) 14.3 H Absolute Lymphocytes (1.2 - 3.4 /CUMM) 1.4 Absolute Monocytes (0.10 - 0.60 /CUMM) 0.5 Absolute Eosinophils (0.0 - 0.7 /CUMM) 0 Absolute Basophils (0.0 - 0.2 /CUMM) 0.1 PUBS MCHC (33.0 - 37.0 G/DL) 32.0 L Miscellaneous Phlebotomy Draw Site RIGHT RADIAL 04/04 04/04 0840 0410 Blood Gas pH (7.35 - 7.45 PH) 7.32 L pCO2 (35 - 45 TORR) 69 *H pO2 (80 - 100 TORR) 86 HCO3 (21 - 28 MEQ/L) 35 H ABG O2 Sat (Measured) (>96.0 %) 95.0 L Carboxyhemoglobin (1.5 - 5.0 %) 1.2 L O2 Concentration % 40 Respiration Rate (BPM) 24 O2 Delivery Method BIPAP Vent Mode ST Expiratory Pressure (CM H2O P) 4 Inspiratory Pressure (CM H2O P) 16 Chemistry Sodium (137 - 145 mmol/L) 138 Potassium (3.5 - 5.1 mmol/L) 5.0 Chloride (98 - 107 mmol/L) 95 L Carbon Dioxide (22 - 30 mmol/L) 38 H Anion Gap (5 - 16) 6 BUN (7 - 17 mg/dL) 21 H Creatinine (0.5 - 1.0 mg/dL) 0.7 Estimated GFR (>60 ml/min) > 60 Glucose (65 - 99 mg/dL) 116 H Calcium (8.4 - 10.2 mg/dL) 9.6 Phosphorus (2.5 - 4.5 mg/dL) 3.0 Magnesium (1.6 - 2.3 mg/dL) 2.3 Total Bilirubin (0.2 - 1.3 mg/dL) 0.4 AST (14 - 36 U/L) 31 ALT (9 - 52 U/L) 42 Albumin (3.5 - 5.0 g/dL) 3.8 Hematology CBC w Diff NO MAN DIFF REQ WBC (4.8 - 10.8 /CUMM) 16.6 H RBC (4.20 - 5.40 /CUMM) 5.33 Hgb (12.0 - 16.0 G/DL) 14.5 Hct (37 - 47 %) 46.3 MCV (81.0 - 99.0 FL) 86.8 MCH (27.0 - 31.0 PG) 27.3 RDW (11.5 - 14.5 %) 15.3 H Plt Count (130 - 400 /CUMM) 299 MPV (7.4 - 10.4 FL) 9.8 Gran % (42.2 - 75.2 %) 90.1 H Lymphocytes % (20.5 - 51.1 %) 7.9 L Monocytes % (1.7 - 9.3 %) 2.0 Eosinophils % (0 - 5 %) 0 Basophils % (0.0 - 2.0 %) 0 L Absolute Granulocytes (1.4 - 6.5 /CUMM) 15.0 H Absolute Lymphocytes (1.2 - 3.4 /CUMM) 1.3 Absolute Monocytes (0.10 - 0.60 /CUMM) 0.3 Absolute Eosinophils (0.0 - 0.7 /CUMM) 0 Absolute Basophils (0.0 - 0.2 /CUMM) 0 PUBS MCHC (33.0 - 37.0 G/DL) 31.4 L Miscellaneous Phlebotomy Draw Site RIGHT RADIAL 04/03 1725 Blood Gas pH (7.35 - 7.45 PH) 7.37 pCO2 (35 - 45 TORR) 60 *H pO2 (80 - 100 TORR) 60 L HCO3 (21 - 28 MEQ/L) 34 H ABG O2 Sat (Measured) (>96.0 %) 92.0 L P-50 (Temp Corrected) N Carboxyhemoglobin (1.5 - 5.0 %) 1.0 L O2 Concentration % 30% Temperature (97.0 - 100.0 FARH) 97.8 Respiration Rate (BPM) 24 O2 Delivery Method FFM Vent Mode ST Expiratory Pressure (CM H2O P) 4 Inspiratory Pressure (CM H2O P) 16 Miscellaneous Phlebotomy Draw Site RIGHT BRACHIAL Disposition Summary Disposition Principal Diagnosis: Acute hypercarbic respiratory failure Additional Diagnosis: COPD exacerbation COPD HTN Discharge Disposition: hospice - medical facilit Discharge Instructions General Discharge Information Code Status: Hospice Patient's Diet: TOLERATED Patient's Activity: TOLERATED Follow-Up Instructions/Appts: F/U WITH HOSPICE NURSES. Copies To: JESUS ROSALES,MENA Attending Review Statement Documenting Attending: AMANDA ESQUIVEL MD Other Findings: The patient was in ICU and then transferred to Hospice Service.
[2016-04-01 00:07] VITALS: BP 106/70
--- NOTE | 2016-04-01 07:22 | PN- Housestaff ---
DONTRELL ROSALES,JONATHAN 04/01/16 0722: Subjective Follow-up For: Hypxic respiratoryt failure COPD exacrbation Subjective: The patinet was in mild distress due to her breathing . She stil has persisetnt cough and is coming with mild mucus. She has been having persistent shortness of breath . Says "last night was worse". Review of Systems Constitutional: Reports: see HPI. Objective Last 24 Hrs of Vital Signs/I&O Vital Signs Date Time Temp Pulse Resp B/P Pulse O2 O2 Flow FiO2 Ox Delivery Rate 04/01 0007 98.2 81 18 106/70 97 Nasal 2.0L Cannula 04/01 0000 Nasal 2.0L Cannula 03/31 2043 96 Nasal 2.0L Cannula 03/31 1659 96 Nasal 2.0L Cannula 03/31 1554 98.2 75 19 102/62 96 Nasal 2.0L Cannula 03/31 0952 74 100/62 03/31 0952 74 100/62 03/31 0850 98 Nasal 2.0L Cannula 03/31 0817 98.1 74 20 100/62 97 Nasal 2.0L Cannula Intake & Output 04/01 1600 04/01 0800 04/01 0000 Intake Total 400 200 Output Total 200 600 Balance 200 -400 Intake, Oral 400 200 Output, Urine 200 600 Physical Exam General Appearance: Alert, Oriented X3, Cooperative Skin: No Rashes, No Breakdown HEENT: Atraumatic, PERRLA Neck: Supple, No JVD Lymphatic: Axillary nl, Cervical nl Cardiovascular: Normal S1, Normal S2 Lungs: b/l wheezing and ronchi., decreased airway entry Abdomen: Soft, No Tenderness Assessment/Plan Assessment: Assessment- 1. Hypoxic respiratory failure, secondary to COPD exacerbation, Sat 86% on admission 2. COPD exacerbation likley from continuous smoking 3. Leukocytosis, likely reactive versus secondary to chronic steroid use 4. Myocardial infarction, history of drug-eluting stent placement in 2006 5. Nicotine use, 60+ pack year smoking history, current use 1 pack per day 6. Hyperlipidemia 7. Hypothyroidism 8. GERD 9. Gout Plan- Overall, has been maintaining her saturations well on 2 L nasal cannula Will continue IV Solu-Medrol 40 every 8 for today . Morning labs are pending Continue by mouth azithromycin Will add Mucinex and recommend Chest Therapy. Continue TRC evaluations, nebulizers, inhalers Continue nicotine patch; consult on cessation Continue chronic home meds All cultures thus far have been negative NO mucus sample received so far. The patient has persistent shortness of breath and if worsening hypoxia will consider the NIPPV Apprecaite Pulm input. FC DVT ppx at all times Problem List: 1. Light-headed feeling 2. Full code status 3. DVT prophylaxis 4. COPD exacerbation Pain Ratin Pain Location: none Pain Goal: Remain pain free Pain Plan: PO tylelnol as needed Tomorrow's Labs & Rationales: AMANDA CASTILLO MD 04/01/16 1234: Attending MD Review Statement Attending Statement Attending MD Statement: examined this patient, discuss w/resident/PA/MORTAR MIXER OPERATOR, agreed w/resident/PA/MORTAR MIXER OPERATOR, reviewed EMR data (avail), discussed with nursing, discussed with case mgmt, amended to note Attending Assessment/Plan: The patient was seen and discussed with house staff. Agree with the plan of care as outlined. Appreciate pulmonary input.
[2016-04-01 08:25] VITALS: BP 144/80
--- NOTE | 2016-04-01 08:42 | PN- Pulmonary ---
Subjective HPI/Critical Care Issues: Follow up: COPD exacerbation Patient was seen and examined this morning, she is in moderate distress, reported that "I never was short of breath like this". She is alert oriented 3 , sitting upright and breathing from mouth, using accessory muscles, sometimes unable to complete a sentence, continue to have cough spells that's productive of clear sputum, denied fever or chills. She reported sleeping upright during night. She is on 2 liters oxygen with saturation 95%, no increase in oxygen requirement over the last 24 hours. Patient is afebrile with normal vital signs. Objective Current Medications: Current Medications Sig/Tootie Start time Last Medication Dose Route Stop Time Status Admin Acetaminophen 650 MG Q6P PRN 03/30 1245 AC PO Albuterol Sulfate 3 ML EVERY 4 HRS/AWAKE 03/30 1600 AC 03/31 INH 2036 Albuterol Sulfate 2 PUF Q4-6 PRN PRN 03/30 1245 AC INH Aspirin Buffered 81 MG DAILY 03/31 1000 AC 04/01 PO 0832 Azithromycin 250 MG DAILY 03/31 1000 AC 04/01 PO 0832 Benzonatate 100 MG TID 03/31 1000 AC 04/01 PO 0832 Budesonide/ 2 PUF BID 03/30 2200 AC 04/01 Formoterol Fumarate INH 0833 Ezetimibe 10 MG DAILY 03/31 1000 AC 04/01 PO 0832 Fenofibrate 48 MG DAILY 03/31 1000 AC 04/01 PO 0832 Guaifenesin 600 MG Q12 04/01 1000 AC 04/01 PO 0831 Guaifenesin 10 ML .STK-MED ONE 03/31 1634 DC PO 03/31 1635 Guaifenesin 10 ML Q6P PRN 03/30 2145 AC 04/01 PO 0831 Heparin Sodium 5,000 UNIT Q8 03/30 1400 AC 03/31 (Porcine) SC 2200 Levothyroxine Sodium 0.075 MG DAILY AC 03/31 0700 AC 04/01 PO 0500 Lorazepam 0.5 MG DAILY NEEDED PRN 03/30 1245 AC 03/31 PO 04/06 1244 2039 Losartan Potassium 25 MG DAILY 03/31 1000 AC 04/01 PO 0832 Methylprednisolone 40 MG Q8 03/30 2200 AC 04/01 IV 04/03 1401 0500 Metoprolol Succinate 50 MG DAILY 03/31 1000 AC 04/01 PO 0832 Nicotine 21 MG DAILY 03/30 1236 AC 04/01 TOP 0832 Pregabalin 150 MG BID 03/30 2200 AC 04/01 PO 0831 Tiotropium Corinne 1 PUF DAILY 03/31 1000 AC 04/01 INH 0832 Ursodiol 900 MG QPM 03/30 2200 AC 03/31 PO 2049 Vital Signs & I&O Last 24 Hrs of Vitals and I&O: Vital Signs Date Time Temp Pulse Resp B/P Pulse O2 O2 Flow FiO2 Ox Delivery Rate 04/01 0832 81 144/80 04/01 0832 81 144/80 04/01 0825 97.6 81 18 144/80 95 Nasal 2.0L Cannula 04/01 0007 98.2 81 18 106/70 97 Nasal 2.0L Cannula 04/01 0000 Nasal 2.0L Cannula 03/31 2043 96 Nasal 2.0L Cannula 03/31 1659 96 Nasal 2.0L Cannula 03/31 1554 98.2 75 19 102/62 96 Nasal 2.0L Cannula 03/31 0952 74 100/62 03/31 0952 74 100/62 Intake & Output 04/01 1600 04/01 0800 04/01 0000 Intake Total 400 200 Output Total 200 600 Balance 200 -400 Intake, Oral 400 200 Output, Urine 200 600 Exam General Appearance: well developed/nourished, alert, awake, moderate distress Head: atraumatic, normal appearance Ears, Nose, Throat: normal ENT inspection Respiratory: decreased breath sounds, accessory muscle use, rhonchi, respiratory distress Cardiovascular: regular rate/rhythm Abdomen: normal bowel sounds, soft, non-tender, no organomegaly Extremities: normal inspection, normal capillary refill, left +1 pedal edema, right trace edema Neurologic/Psychiatric: awake, alert, oriented x 3 Impression/Plan Impression/Plan Impression/Plan: Ms. 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 Impression/Plan: 1. Severe COPD not on home oxygen, current smoker. 2. Hypoxemic respiratory failure. 3. Leukocytosis - secondary to steroids. 4. History of NM with drug-eluting stent. 5. Hyperlipidemia. 6. Hypothyroidism. 7. GERD. Recommendations: * Patient is in moderate distress today, continued to saturate well on 2 L oxygen. * Continue IV Solu-Medrol 40 mg every 8 hours * Continue azithromycin 25 mg daily PO to finish total of 5 days, Day #3 * The ligunella and Streptococcus pneumonia antigen negative * Sputum culture pending receipt, blood and urine cultures are remain negative * Continue Benzonatate, Mucinex * Continue Spiriva and Symbicort * Continue TRC * Maintain oxygen saturations greater than 92% * BMP daily and replete potassium, magnesium and phosphorus * Consider repeat chest x-ray * Patient is on nicotine patch, Patient wants to quit smoking * DVT prophylaxis subcutaneous heparin
[2016-04-01 12:09] LABS: ABSOLUTE BASOPHIL COUNT 0 /CUMM (0.0-0.2); ABSOLUTE EOSINOPHIL COUNT 0 /CUMM (0.0-0.7); ABSOLUTE GRANULOCYTE CT 16.8 /CUMM (1.4-6.5); ABSOLUTE LYMPH COUNT 1.1 /CUMM (1.2-3.4); ABSOLUTE MONOCYTE COUNT 0.8 /CUMM (0.10-0.60); BASOPHIL % 0.1 % (0.0-2.0); EOSINOPHIL % 0 % (0-5); HEMATOCRIT 42.7 % (37-47); MEAN CORPUSCULAR HGB 27.5 PG (27.0-31.0); MEAN CORPUSCULAR HGB CONC 31.9 G/DL (33.0-37.0); MEAN CORPUSCULAR VOLUME 86.5 FL (81.0-99.0); MEAN PLATELET VOLUME 9.4 FL (7.4-10.4); PLATELET COUNT 257 /CUMM (130-400); RBC DISTRIBUTION WIDTH 15.9 % (11.5-14.5); RED BLOOD CELL CT 4.94 /CUMM (4.20-5.40)
[2016-04-01 13:01] LABS: WHITE BLOOD CELL COUNT 18.7 /CUMM (4.8-10.8)
[2016-04-01 15:46] VITALS: BP 120/62
[2016-04-02 00:43] VITALS: BP 118/64
[2016-04-02 07:57] VITALS: BP 130/70
--- NOTE | 2016-04-02 07:58 | PN- Housestaff ---
DONTRELL ROSALES,JONATHAN 04/02/16 0758: Subjective Follow-up For: COPD exacerbation Complaints: COMPLAINS OF PERSISTENT SHORTNESS OF BREATH Subjective: Patient has been doing fine, better than yesterday but still has persistent shortness of breath and bouts of dry cough. She herself doesn't feel that she is at baseline. Review of Systems Constitutional: Reports: see HPI. Objective Last 24 Hrs of Vital Signs/I&O Vital Signs Date Time Temp Pulse Resp B/P Pulse O2 O2 Flow FiO2 Ox Delivery Rate 04/02 0808 95 Nasal 2.0L Cannula 04/02 0757 97.0 89 18 130/70 99 Nasal 2.0L Cannula 04/02 0433 95 Nasal 2.0L Cannula 04/02 0043 98.6 74 22 118/64 96 Room Air 04/02 0000 Nasal 2.0L Cannula 04/01 1600 97 Nasal 2.0L Cannula 04/01 1546 98.5 61 22 120/62 97 Nasal 2.0L Cannula 04/01 1008 97 Nasal 2.0L Cannula Intake & Output 04/02 1600 04/02 0800 04/02 0000 Intake Total 120 Output Total Balance 120 Intake, Oral 120 Physical Exam General Appearance: Alert, Oriented X3, Cooperative Skin: No Rashes, No Breakdown Neck: Supple, No JVD Lymphatic: Cervical nl Cardiovascular: Regular Rate, Normal S1, Normal S2 Lungs: BILATERAL DECREASED AIRWAY ENTRY AND BILATERAL EXPIRATORY WHEEZING Neurological: Normal Gait, Normal Speech, Strength at 5/5 X4 Ext Extremities: No Clubbing, No Cyanosis Assessment/Plan Assessment: Assessment- 1. Hypoxic respiratory failure, secondary to COPD exacerbation, Sat 86% on admission 2. COPD exacerbation likley from continuous smoking 3. Leukocytosis, likely reactive versus secondary to chronic steroid use 4. Myocardial infarction, history of drug-eluting stent placement in 2006 5. Nicotine use, 60+ pack year smoking history, current use 1 pack per day 6. Hyperlipidemia 7. Hypothyroidism 8. GERD 9. Gout Plan- Overall, has been maintaining her saturations well on 2 L nasal cannula Will continue IV Solu-Medrol 40 every 8 for today as well.. Morning labs showed leukocytosis which as mentioned above shows reactive leukocytosis after the steroid use Continue by mouth azithromycin Will add Mucinex and recommend Chest Therapy. Continue TRC evaluations, nebulizers, inhalers Continue nicotine patch; consult on cessation Continue chronic home meds All cultures thus far have been negative NO mucus sample received so far. The patient's symptoms are improving slightly. If her condition worsens he might have to use NIPPV for her WORK OF BREATHING Apprecaite Pulm input. FC DVT ppx at all times Problem List: 1. Full code status 2. DVT prophylaxis 3. COPD exacerbation Pain Ratin Pain Location: No specific pain location Pain Goal: Remain pain free Pain Plan: By mouth Tylenol as needed Tomorrow's Labs & Rationales: CBC and basic electrolyte panel AMANDA ESQUIVEL MD 04/02/16 1616: Attending MD Review Statement Attending Statement Attending MD Statement: examined this patient, discuss w/resident/PA/PROPERTY MANAGEMENT SUPERVISOR, agreed w/resident/PA/PROPERTY MANAGEMENT SUPERVISOR, reviewed EMR data (avail), discussed with nursing, amended to note Attending Assessment/Plan: The patient was seen and discussed with house staff. Agree with plan of care as outlined. Appreciate pulmonary follow-up.
[2016-04-02 08:02] LABS: ABSOLUTE BASOPHIL COUNT 0 /CUMM (0.0-0.2); ABSOLUTE EOSINOPHIL COUNT 0 /CUMM (0.0-0.7); ABSOLUTE GRANULOCYTE CT 18.3 /CUMM (1.4-6.5); ABSOLUTE LYMPH COUNT 1.1 /CUMM (1.2-3.4); ABSOLUTE MONOCYTE COUNT 1.1 /CUMM (0.10-0.60); BASOPHIL % 0 % (0.0-2.0); EOSINOPHIL % 0 % (0-5); HEMATOCRIT 44.2 % (37-47); MEAN CORPUSCULAR HGB 27.5 PG (27.0-31.0); MEAN CORPUSCULAR HGB CONC 31.6 G/DL (33.0-37.0); MEAN CORPUSCULAR VOLUME 86.9 FL (81.0-99.0); MEAN PLATELET VOLUME 9.4 FL (7.4-10.4); RBC DISTRIBUTION WIDTH 15.5 % (11.5-14.5); RED BLOOD CELL CT 5.09 /CUMM (4.20-5.40); WHITE BLOOD CELL COUNT 20.5 /CUMM (4.8-10.8)
--- NOTE | 2016-04-02 08:35 | PN- Pulmonary ---
MARIO ROSALES,[facility] 04/02/16 0835: Subjective HPI/Critical Care Issues: Follow up: COPD exacerbation Patient was seen and examined this morning, she is in mild distress, mouth breather, with using of accessory muscles, overall looks better than yesterday but still struggling with breathing, able to complete sentences but has difficulty finishing her meals because of difficulty breathing. She continues to have productive cough, denied chest pain, fever, chills, nasal congestion, headache. She was able to sleep good last night in upright position. Patient mentioned that one week prior to admission she increased the number of cigarettes used to smoke daily because of stress at home, she has been on metoprolol succinate 50 mg since December with no significant breathing difficulties. Objective Current Medications: Current Medications Sig/Tootie Start time Last Medication Dose Route Stop Time Status Admin Acetaminophen 650 MG .STK-MED ONE 04/01 2012 DC PO 04/01 2013 Acetaminophen 650 MG Q6P PRN 03/30 1245 AC 04/01 PO 2018 Albuterol Sulfate 2 PUF EVERY 4 HRS/AWAKE 04/01 2000 AC 04/02 INH 0434 Albuterol Sulfate 3 ML Q4P PRN 04/01 1930 AC INH Albuterol Sulfate 2 PUF Q4P PRN 04/01 1715 DC INH Albuterol Sulfate 3 ML EVERY 4 HRS/AWAKE 03/30 1600 DC 04/01 INH 1600 Albuterol Sulfate 2 PUF Q4-6 PRN PRN 03/30 1245 DC INH Aspirin Buffered 81 MG DAILY 03/31 1000 AC 04/01 PO 0832 Azithromycin 250 MG DAILY 03/31 1000 AC 04/01 PO 0832 Benzonatate 100 MG TID 03/31 1000 AC 04/01 PO 211 Budesonide/ 2 PUF BID 03/30 2200 AC 04/01 Formoterol Fumarate INH 2110 Ezetimibe 10 MG DAILY 03/31 1000 AC 04/01 PO 0832 Fenofibrate 48 MG DAILY 03/31 1000 AC 04/01 PO 0832 Guaifenesin 600 MG Q12 04/01 1000 AC 04/01 PO 211 Guaifenesin 10 ML Q6P PRN 03/30 2145 AC 04/02 PO 0446 Heparin Sodium 5,000 UNIT Q8 03/30 1400 AC 03/31 (Porcine) SC 2200 Levothyroxine Sodium 0.075 MG DAILY AC 03/31 0700 AC 04/02 PO 0441 Lorazepam 0.5 MG DAILY NEEDED PRN 03/30 1245 AC 04/01 PO 04/06 1244 2110 Losartan Potassium 25 MG DAILY 03/31 1000 AC 04/01 PO 0832 Methylprednisolone 40 MG Q8 03/30 2200 AC 04/02 IV 04/03 1401 0435 Metoprolol Succinate 50 MG DAILY 03/31 1000 AC 04/01 PO 0832 Nicotine 21 MG DAILY 03/30 1236 AC 04/01 TOP 0832 Patient Medication 1 ED .[facility]-MED ONE 04/01 1359 DC Teaching ED 04/01 1400 Pregabalin 150 MG BID 03/30 2200 AC 04/01 PO 2110 Tiotropium [place] 1 PUF DAILY 03/31 1000 AC 04/02 INH 0645 Ursodiol 900 MG QPM 03/30 2200 AC 04/01 PO 2110 Vital Signs & I&O Last 24 Hrs of Vitals and I&O: Vital Signs Date Time Temp Pulse Resp B/P Pulse O2 O2 Flow FiO2 Ox Delivery Rate 04/02 0808 95 Nasal 2.0L Cannula 04/02 0757 97.0 89 18 130/70 99 Nasal 2.0L Cannula 04/02 0433 95 Nasal 2.0L Cannula 04/02 0043 98.6 74 22 118/64 96 Room Air 04/02 0000 Nasal 2.0L Cannula 04/01 1600 97 Nasal 2.0L Cannula 04/01 1546 98.5 61 22 120/62 97 Nasal 2.0L Cannula 04/01 1008 97 Nasal 2.0L Cannula Intake & Output 04/02 1600 04/02 0800 04/02 0000 Intake Total 120 Output Total Balance 120 Intake, Oral 120 Exam General Appearance: well developed/nourished, alert, awake, mild distress Head: atraumatic, normal appearance Neck: normal inspection, supple Respiratory: anteriorly decrease the sounds, posteriorly almost silent chest Anteriorly wheeze Cardiovascular: regular rate/rhythm Abdomen: normal bowel sounds, soft, non-tender Extremities: normal inspection, normal capillary refill, normal range of motion, left +1 pedeal edema, right trace pedal edema Neurologic/Psychiatric: no motor/sensory deficits, awake, alert, oriented x 3 Impression/Plan Impression/Plan Impression/Plan: Ms. 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 Impression/Plan: 1. Severe COPD not on home oxygen, current smoker. 2. Hypoxemic respiratory failure. 3. Leukocytosis - secondary to steroids. 4. History of [place] with drug-eluting stent. 5. Hyperlipidemia. 6. Hypothyroidism. 7. GERD. Patient is in [id number] distress, she is on 2 L oxygen with good saturation 95%, rest of vital signs are stable, remains afebrile. Labs are significant for bicarbonate of 36, indicating carbon dioxide retention, slight increase in BUN likely decreased oral intake because of difficulty breathing, WBC of 20.5 mostly steroid induced. Recommendations: * Consider ABG * Consider BiPAP for 2 hours in case of respiratory acidosis * Continue IV Solu-Medrol 40 mg every 8 hours * Consider repeat chest x-ray * Continue azithromycin 25 mg daily PO to finish total of 5 days, Day #4 * The ligunella and Streptococcus pneumonia antigen negative * Sputum culture pending receipt, blood and urine cultures are remain negative * Continue Benzonatate, Mucinex * Continue Spiriva and Symbicort * Continue TRC * Maintain oxygen saturations greater than 92% * BMP daily and replete potassium, magnesium and phosphorus * Patient is on nicotine patch, Patient wants to quit smoking * DVT prophylaxis subcutaneous heparin JAXON ROSALES,Cally GRACIA 04/02/16 1027: Impression/Plan Impression/Plan Recommendations: Addendum: I have personally seen and examined the patient and agree with the resident's assessment and plan as above. The patient continues to have ongoing wheezing and coughing spasms. We will continue her on the current dose of Solu-Medrol as well as all supportive treatments. She has not been taking nebulizer treatments as this causes her significant coughing spasms. She will however need treatments as she has ongoing bronchospasm and I have discussed this with her at length. Continue all supportive care for now.
[2016-04-02 08:42] LABS: GRANULOCYTE % 89.3 % (42.2-75.2); PLATELET COUNT 277 /CUMM (130-400)
[2016-04-02 16:05] VITALS: BP 120/80
[2016-04-02 19:58] VITALS: BP 130/70
--- NOTE | 2016-04-02 20:00 | NUR ---
PT C/O A LOT OF DIFFICULTY BREATHING. RR 30, 95% ON 5L NC, NON PRODUCTIVE COUGH. BECOMES VERY SOB WITH MINIMAL EXERTION. MARKOS SIMMONS NOTIFIED AND STATES WILL COME UP TO SEE PT. WILL CONTINUE TO MONITOR.
--- NOTE | 2016-04-02 20:13 | NUR ---
NIGHT TIME MEDS GIVEN EARLY PER MD.
[2016-04-03 00:43] VITALS: BP 132/72
--- NOTE | 2016-04-03 07:16 | PN- Housestaff ---
JOEY SALEEM 04/03/16 0716: Subjective Follow-up For: COPD exacerbation Subjective: Patient seen and examined at bedside. She is in res[piratory distress, and was recieving a braething treatment. Later she destuarted to 68% on 2.0 liters of oxygen while using the comode. An ABG was done, c/w respiratory acidosis. She was staretd on NIV after discussing with Dr. Castañeda,irene bazzi a CXR was ordered. Review of Systems Constitutional: Denies: chills, fever. Cardiovascular: Denies: chest pain, palpitations, peripheral edema. Respiratory: Reports: cough, short of breath, sputum production. Gastrointestinal: Denies: abdominal pain, nausea, vomiting. Genitourinary: Reports: no symptoms. Neurological/Psychological: Reports: anxiety. Denies: headache, numbness. Objective Last 24 Hrs of Vital Signs/I&O Vital Signs Date Time Temp Pulse Resp B/P Pulse O2 O2 Flow FiO2 Ox Delivery Rate 04/03 0043 97.7 84 30 132/72 95 Nasal 2.0L Cannula 04/03 0000 Nasal 2.0L Cannula 04/02 1958 84 30 130/70 95 Nasal 5.0L Cannula 04/02 1905 99 Nasal 5.0L Cannula 04/02 1605 97.8 80 20 120/80 99 04/02 1600 98 Nasal 2.0L Cannula 04/02 1037 96 Nasal 2.0L Cannula 04/02 1023 74 136/84 04/02 1023 74 136/84 04/02 0808 95 Nasal 2.0L Cannula 04/02 0800 97 Nasal 2.0L Cannula 04/02 0757 97.0 89 18 130/70 99 Nasal 2.0L Cannula Intake & Output 04/03 0800 04/03 0000 04/02 1600 Intake Total 720 Output Total 800 400 551 Balance -800 -400 169 Intake, Oral 720 Number 1 Bowel Movements Output, Stool 1 Output, Urine 800 400 550 Physical Exam General Appearance: Alert, Oriented X3, Cooperative, Mild Distress, Moderate Distress HEENT: Atraumatic, PERRLA, Mucous Membr. moist/pink Neck: Supple, No JVD Cardiovascular: Normal S1, Normal S2, No Murmurs Lungs: mild bibasilar crackles Abdomen: Soft, No Tenderness Neurological: Normal Speech Extremities: No Edema Current Medications: Current Medications Sig/Tootie Start time Last Medication Dose Route Stop Time Status Admin Acetaminophen 650 MG Q6P PRN 03/30 1245 AC 04/03 PO 0054 Albuterol Sulfate 2 PUF EVERY 4 HRS/AWAKE 04/01 2000 AC 04/02 INH 1945 Albuterol Sulfate 3 ML Q4P PRN 04/01 1930 AC 04/02 INH 1905 Aspirin Buffered 81 MG DAILY 03/31 1000 AC 04/02 PO 1017 Azithromycin 250 MG DAILY 03/31 1000 AC 04/02 PO 1018 Benzonatate 100 MG TID 03/31 1000 AC 04/02 PO 2019 Budesonide/ 2 PUF BID 03/30 2200 AC 04/02 Formoterol Fumarate INH 2021 Ezetimibe 10 MG DAILY 03/31 1000 AC 04/02 PO 1018 Fenofibrate 48 MG DAILY 03/31 1000 AC 04/02 PO 1018 Guaifenesin 600 MG Q12 04/01 1000 AC 04/02 PO 2019 Guaifenesin 10 ML Q6P PRN 03/30 2145 AC 04/03 PO 0054 Heparin Sodium 5,000 UNIT Q8 03/30 1400 AC 04/02 (Porcine) SC 1439 Levothyroxine Sodium 0.075 MG DAILY AC 03/31 0700 AC 04/03 PO 0552 Lorazepam 0.5 MG DAILY NEEDED PRN 03/30 1245 AC 04/03 PO 04/06 1244 0054 Losartan Potassium 25 MG DAILY 03/31 1000 AC 04/02 PO 1023 Methylprednisolone 40 MG Q8 03/30 2200 AC 04/03 IV 04/03 1401 0552 Metoprolol Succinate 50 MG DAILY 03/31 1000 AC 04/02 PO 1023 Nicotine 21 MG DAILY 03/30 1236 AC 04/02 TOP 1017 Pregabalin 150 MG BID 03/30 2200 AC 04/02 PO 2018 Tiotropium [place] 1 PUF DAILY 03/31 1000 AC 04/02 INH 0645 Ursodiol 900 MG QPM 03/30 2200 AC 04/02 PO 2018 Last 24 Hrs of Lab/Erasmo Results Last 24 Hrs of Labs/Mics: Laboratory Tests 04/03/16 0605: Sodium Pending, Potassium Pending, Chloride Pending, Carbon Dioxide Pending, Anion Gap Pending, BUN Pending, Creatinine Pending, BUN/Creatinine Ratio Pending , CBC w Diff Pending, WBC Pending, RBC Pending, Hgb Pending, Hct Pending, MCV Pending, MCH Pending, RDW Pending, Plt Count Pending, MPV Pending, PUBS MCHC Pending Assessment/Plan Assessment: Assessment- 1. Hypoxic respiratory failure, secondary to COPD exacerbation, Sat 86% on admission 2. COPD exacerbation likley from continuous smoking 3. Leukocytosis, likely reactive versus secondary to chronic steroid use 4. Myocardial infarction, history of drug-eluting stent placement in 2006 5. Nicotine use, 60+ pack year smoking history, current use 1 pack per day 6. Hyperlipidemia 7. Hypothyroidism 8. GERD 9. Gout Plan- Desutuartion to 68% this AM. On NIV now, with ABGs showing respiratory acidosis Will continue IV Solu-Medrol 40 every 8 for today as well.. Morning labs showed leukocytosis which as mentioned above shows reactive leukocytosis after the steroid use - trending down Continue by mouth azithromycin Continue Mucinex and recommend Chest Therapy. Continue TRC evaluations, nebulizers, inhalers Continue nicotine patch; consult on cessation Continue chronic home meds All cultures thus far have been negative NO mucus sample received so far. Would consider getting an Echo as she has mild basliar crackles and her last echo was in 2010 - she does have a hx of CAD and is s/p stent placement Apprecaite Pulm input. FC DVT ppx at all times Problem List: 1. COPD EXACERBATION Pain Ratin Pain Location: chest - from coughing Pain Goal: Pain 4 or less Pain Plan: tyelnol Tomorrow's Labs & Rationales: cbc, bep AMANDA ESQUIVEL MD 04/03/16 6810: Attending MD Review Statement Attending Statement Attending MD Statement: examined this patient, discuss w/resident/PA/SUPERVISOR OF OFFICIALS, agreed w/resident/PA/SUPERVISOR OF OFFICIALS, reviewed EMR data (avail), discussed with nursing, reviewed images, amended to note Attending Assessment/Plan: The patient was seen and discussed with house staff. Increased respiratory distress noted. Patient to be transferred to ICU for closer respiratory monitoring and BIPAP therapy under Dr. Castañeda's service.
[2016-04-03 07:43] LABS: ABSOLUTE BASOPHIL COUNT 0 /CUMM (0.0-0.2); ABSOLUTE EOSINOPHIL COUNT 0 /CUMM (0.0-0.7); ABSOLUTE GRANULOCYTE CT 15.7 /CUMM (1.4-6.5); ABSOLUTE LYMPH COUNT 1.3 /CUMM (1.2-3.4); ABSOLUTE MONOCYTE COUNT 0.7 /CUMM (0.10-0.60); BASOPHIL % 0 % (0.0-2.0); EOSINOPHIL % 0 % (0-5); HEMATOCRIT 43.3 % (37-47); MEAN CORPUSCULAR HGB 27.4 PG (27.0-31.0); MEAN CORPUSCULAR HGB CONC 31.7 G/DL (33.0-37.0); MEAN CORPUSCULAR VOLUME 86.5 FL (81.0-99.0); MEAN PLATELET VOLUME 9.3 FL (7.4-10.4); PLATELET COUNT 259 /CUMM (130-400); RBC DISTRIBUTION WIDTH 15.4 % (11.5-14.5); RED BLOOD CELL CT 5.01 /CUMM (4.20-5.40); WHITE BLOOD CELL COUNT 17.7 /CUMM (4.8-10.8)
[2016-04-03 08:35] LABS: GRANULOCYTE % 88.7 % (42.2-75.2)
[2016-04-03 08:44] VITALS: BP 156/88
--- NOTE | 2016-04-03 09:01 | PN- Pulmonary ---
Subjective HPI/Critical Care Issues: Follow up: COPD exacerbation Early this morning when she was using the bedside commode she desat to 68% on 2 L oxygen. Oxygen was increased to 5 L and ABG was obtained. PH 7.26, PaO2 75, CO2 76, bicarbonate 33. Patient remained afebrile, had one reading of high blood pressure 156/80 and tachycardia 102 most probably when she was stressed out because his respiratory station. BiPAP was started at 8.45 am, settings are 14/4 with saturation 40%. She looks very tired, denied sleep during the night. She is still complaining of productive cough. Objective Current Medications: Current Medications Sig/Tootie Start time Last Medication Dose Route Stop Time Status Admin Acetaminophen 650 MG .STK-MED ONE 04/03 005 DC PO 04/03 005 Acetaminophen 650 MG Q6P PRN 03/30 1245 AC 04/03 PO 0054 Albuterol Sulfate 2 PUF EVERY 4 HRS/AWAKE 04/01 2000 AC 04/03 INH 0800 Albuterol Sulfate 3 ML Q4P PRN 04/01 1930 AC 04/03 INH 0737 Aspirin Buffered 81 MG DAILY 03/31 1000 AC 04/02 PO 1017 Azithromycin 250 MG DAILY 03/31 1000 AC 04/02 PO 1018 Benzonatate 100 MG TID 03/31 1000 AC 04/02 PO 2019 Budesonide/ 2 PUF BID 03/30 2200 AC 04/02 Formoterol Fumarate INH 2021 Ezetimibe 10 MG DAILY 03/31 1000 AC 04/02 PO 1018 Fenofibrate 48 MG DAILY 03/31 1000 AC 04/02 PO 1018 Guaifenesin 10 ML .STK-MED ONE 04/03 0051 DC PO 04/03 0052 Guaifenesin 600 MG Q12 04/01 1000 AC 04/02 PO 2019 Guaifenesin 10 ML Q6P PRN 03/30 2145 AC 04/03 PO 0757 Heparin Sodium 5,000 UNIT Q8 03/30 1400 AC 04/02 (Porcine) SC 1439 Levothyroxine Sodium 0.075 MG DAILY AC 03/31 0700 AC 04/03 PO 0552 Lorazepam 0.5 MG ONE ONE 04/03 0800 DC 04/03 PO 04/03 0801 0801 Lorazepam 0.5 MG DAILY NEEDED PRN 03/30 1245 AC 04/03 PO 04/06 1244 0054 Losartan Potassium 25 MG DAILY 03/31 1000 AC 04/02 PO 1023 Methylprednisolone 40 MG Q8 03/30 2200 AC 04/03 IV 04/03 1401 0552 Metoprolol Succinate 50 MG DAILY 03/31 1000 AC 04/02 PO 1023 Nicotine 21 MG DAILY 03/30 1236 AC 04/02 TOP 1017 Pregabalin 150 MG BID 03/30 2200 AC 04/02 PO 2018 Tiotropium [place] 1 PUF DAILY 03/31 1000 AC 04/02 INH 0645 Ursodiol 900 MG QPM 03/30 2200 AC 04/02 PO 2018 Vital Signs & I&O Last 24 Hrs of Vitals and I&O: Vital Signs Date Time Temp Pulse Resp B/P Pulse O2 O2 Flow FiO2 Ox Delivery Rate 04/03 0844 97.5 102 24 156/88 93 Nasal 2.0L Cannula 04/03 0752 997 Non 2.0L ReBreather 04/03 0043 97.7 84 30 132/72 95 Nasal 2.0L Cannula 04/03 0000 Nasal 2.0L Cannula 04/02 1958 84 30 130/70 95 Nasal 5.0L Cannula 04/02 1905 99 Nasal 5.0L Cannula 04/02 1605 97.8 80 20 120/80 99 04/02 1600 98 Nasal 2.0L Cannula 04/02 1037 96 Nasal 2.0L Cannula 04/02 1023 74 136/84 04/02 1023 74 136/84 Intake & Output 04/03 1600 04/03 0800 04/03 0000 Intake Total Output Total 800 400 Balance -800 -400 Number 1 Bowel Movements Output, Urine 800 400 Exam General Appearance: awake, lethargic, mild distress Head: atraumatic, normal appearance Respiratory: decreased breath sounds, no added sounds Cardiovascular: regular rate/rhythm Abdomen: normal bowel sounds, soft, non-tender Back: normal inspection, normal range of motion Extremities: normal inspection, normal capillary refill, normal range of motion, bilateral pedal edema +1 Impression/Plan Impression/Plan Impression/Plan: Ms. 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 Impression/Plan: 1. Severe COPD not on home oxygen, current smoker. 2. Hypoxemic respiratory failure. 3. Leukocytosis - secondary to steroids. 4. History of [place] with drug-eluting stent. 5. Hyperlipidemia. 6. Hypothyroidism. 7. GERD. Recommendations: * Continue BiPAP for 4 hours and obtain ABG 1 hour after starting time * Change the BiPAP setting to 16/4 with RR 24 * Transfer the patient to ICU * Continue IV Solu-Medrol 40 mg every 8 hours * Consider repeat chest x-ray * Continue azithromycin 25 mg daily PO to finish total of 5 days, Day #5 * The ligunella and Streptococcus pneumonia antigen negative * Sputum culture pending receipt, blood and urine cultures are remain negative * Continue Benzonatate, Mucinex * Continue Spiriva and Symbicort * Continue TRC * Maintain oxygen saturations greater than 92% * BMP daily and replete potassium, magnesium and phosphorus * Consider repeating ABG whenever patient seemed to be confused * Patient is on nicotine patch, Patient wants to quit smoking * DVT prophylaxis subcutaneous heparin
--- NOTE | 2016-04-03 10:42 | RADIOLOGY REPORT ---
EXAMINATION: XR PORTABLE CHEST CLINICAL INFORMATION: Hypoxia. Evaluate for pulmonary venous congestion or pneumonia. COMPARISON: Several prior chest x-rays, most recent of which is dated 03/30/2016. TECHNIQUE: Portable AP semierect view of the chest was obtained on 2 images. FINDINGS: The cardiomediastinal silhouette is within normal limits in size. Lungs bilaterally are symmetrically hyperinflated with hyperexpansion of the upper lungs and crowding of bronchovascular markings in both lung bases. Mild linear areas of subsegmental atelectasis or scarring are seen in the right lower lobe, unchanged. No evidence of focal consolidation or pulmonary edema is seen. No effusion or pneumothorax is seen. Osteopenia is suggested. Upper lumbar spinal fusion hardware is partially imaged. IMPRESSION: Unchanged appearance of the chest with findings of obstructive lung disease and superimposed linear subsegmental atelectasis or scarring in the right lung base. No evidence of focal pneumonia or pulmonary edema.
[2016-04-03 11:40] VITALS: BP 134/80
--- NOTE | 2016-04-03 11:40 | NUR ---
70 YEAR OLD FEMALE PRESENT TO HOSPITAL WITH COPD EXACERBATION AND HYPOXIA. PRESENTS TO ICU FOR CLOSER MONITORING DUE TO WORSENING ABGS AND NEED TO HAVE BIPAP PLACED FOR INCREASED CO2 75. ABG IMPROVED AND BIPAP WORKING WELL BUT PULMONOLOGY WOULD LIKE TO CLOSELY MONITOR SITUATION AND CONT ON IV STEROIDS. PT SETTLED INTO ROOM 107 AND SLIGHTLY SOB WITH EXERTION, BUT IMPROVED WITH BIPAP. RESP TX TO FOLLOW
--- NOTE | 2016-04-03 12:00 | Transfer of Care Summary ---
See Addendum Hospital Course Course Hospital Course: Ms. 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 Vitals at the time of admission afebrile respiratory rate 2624, pulse 89, blood pressure 166/100, saturating 86% on room air. Physical exam was pertinent for PERRLA, dry mucous membranes, no JVD, chest revealed diminished breath sounds with mild expiratory wheeze, cardiac exam was benign with regular rate and rhythm, normal S1-S2 no murmurs abdominal exam was benign and examination of the extremities revealed 1+ edema. Neuro exam was grossly unremarkable. Labs pertinent for an H&H of 14.6/45.1, white blood cell count of 15,000 and a platelet count of 299,000. Serum chemistries reveal a sodium of 142, potassium of 4.0, BUN 9 and creatinine of 0.7. Serum anion gap was 12, LFTs unremarkable with a total bili of 0.4, AST/ALT of 32/39 and an alkaline phosphatase of 116 first set of troponins negative at 0.01. EKG revealed sinus tachycardia with a heart rate of 126, CA interval 127, QRS 84 and a QTC of 41. Chest x-ray showed minor subsegmental atelectatic changes over right lower lung no evidence of pneumonia. She was admitted to [facility] with acute hypoxic respiratory failure thought to be secondary to COPD exacerbation with leukocytosis which was thought to be likely reactive secondary to chronic steroid use. Of note she does have a history of ID and is status post drug-eluting stent in 2006. Pulmonary consult was obtained with Cally Castañeda MD. She was started on IV Solu-Medrol, azithromycin and TRC valve with total coronary toilet. Of note her strep pneumo and Legionella antigen was negative. Blood and urine cultures continued to remain negative. She continued to have persistent shortness of breath and desaturated this morning 68% while getting out of the commode. She was started on noninvasive ventilation for increased work of breathing as well as for respiratory acidosis as her ABGs showed a pH of 7.26 with a PCO2 of 75 and a PaO2 of 76 on 93%. She's been subsequently transferred to the ICU after repeat ABGs showed minimal improvement 1 hour being on noninvasive ventilation. Assessment/Plan: Assessment: Assessment- 1. Acute Hypoxic and Hypercarbic respiratory failure, secondary to COPD exacerbation requiring NIV 2. COPD exacerbation likley from continuous smoking 3. Leukocytosis, likely reactive versus secondary to chronic steroid use 4. Myocardial infarction, history of drug-eluting stent placement in 2006 5. Nicotine use, 60+ pack year smoking history, current use 1 pack per day 6. Hyperlipidemia 7. Hypothyroidism 8. GERD 9. Gout Plan- Desatuartion to 68% this AM. On NIV now, with ABGs showing respiratory acidosis Will continue IV Solu-Medrol 40 every 8 for today as well.. Morning labs showed leukocytosis which as mentioned above shows reactive leukocytosis after the steroid use - trending down Continue by mouth azithromycin Continue Mucinex and recommend Chest Therapy. Continue TRC evaluations, nebulizers, inhalers Continue nicotine patch; consult on cessation Continue chronic home meds All cultures thus far have been negative NO mucus sample received so far. Would consider getting an Echo as she has mild basliar crackles and her last echo was in 2010 - she does have a hx of CAD and is s/p stent placement F/U repeat CXR FC DVT ppx at all times
[2016-04-03 16:00] VITALS: BP 153/58
--- NOTE | 2016-04-03 16:11 | NUR ---
0730 PATIENT REPORTED FEELING SHORT OF BREATH, HR 104, O2SAT 93% ON 2LNC. MD SALEEM AND RESPIRATORY NOTIFIED, IN ROOM TO SEE THE PATIENT. 0815 PATIENT ON BSC, O2 SAT 62%, HR 126. SHORTLY RESOLVED TO 82%, SHORT OF BREATH, NO OTHER S/O DISTRESS NOTED MD SALEEM AND RESPIRATORY NOTIFIED, IN ROOM TO SEE THE PATIENT. ASSISTED BACK TO BED AND PLACED ON BIPAP BY RESPIRATORY. FOLLOW UP O2 94% ON THE BIPAP. 1130 PATIENT TRASNSFERRED TO THE ICU PER MD PRINCE.
--- NOTE | 2016-04-03 20:04 | NUR ---
1645: PATIENT C/O INCREASING SHORTNESS OF BREATH. O2 SAT IS 98% ON THE BIPAP. PATIENT IS ALERT AND ORIENTED X3 AND ANXIOUS. GIVEN EMOTIONAL REASSURANCE. PATIENT SKIN IS INTACT BUT THINK. BIPAP IN PLACE W/ RATE OF 24, FIO2 OF 30%, 16/4. LUNG SOUNDS DIMINISHED THROUGHOUT. ABDOMEN DISTENDED SOFT/POSITIVE BOWEL SOUNDS. PATIENT TO VOID IN BED BULLARD. NO IV FLUIDS AT THIS TIME. GIVEN SIPS OF WATER. SKIN INTACT BUT THIN, +2 LOWER EXT TO RIGHT AND +3 EDEMA TO THE LLE. NSR ON THE MONITOR 70S-90S W/ PAC'S. SBP=90S-100S. PATIENT DENIES CHEST PAIN. SPOKE TO DR. CHÁVEZ AWARE. IN TO ASSESS PATIENT. 0.5MG PO ATIVAN GIVEN WITH SOME RELIEF.
[2016-04-04] VITALS: BP 112/58
--- NOTE | 2016-04-04 | NUR ---
PT APPEARS TO BE COMFORTABLY RESTING IN BED. BIPAP IN PLACE. PT HAS LIQUICEL CPAP CUSHIN TO BRIDGE OF NOSE. PT LUNGS ARE DIMINISHED AND PT HAS NONPRODUCTIVE COUGH. PT DOES NOT TOLERATE REPOSITIONING
--- NOTE | 2016-04-04 03:30 | NUR ---
PT C/O DIFFICULTY BREATHING AND GENERALIZED DISCOMFORT. PT ASSISTED TO EDGE OF BED TO TRIPOD. PT UNABLE TO LAY ON BACK OR LEFT SIDE. PT STILL C/O DIFFICULTY BREATHING RESPIRATORY RATE 28 SAT REMAINS 90-92% ON BIPAP. RESPIRATORY AT BEDSIDE AND PT TO BE GIVEN ATIVAN. RN AT BEDSIDE PROVIDING EMOTIONAL SUPPORT.
[2016-04-04 05:48] LABS: ABSOLUTE BASOPHIL COUNT 0 /CUMM (0.0-0.2); ABSOLUTE EOSINOPHIL COUNT 0 /CUMM (0.0-0.7); ABSOLUTE LYMPH COUNT 1.3 /CUMM (1.2-3.4); ABSOLUTE MONOCYTE COUNT 0.3 /CUMM (0.10-0.60); BASOPHIL % 0 % (0.0-2.0); EOSINOPHIL % 0 % (0-5); GRANULOCYTE % 90.1 % (42.2-75.2); HEMATOCRIT 46.3 % (37-47); MEAN CORPUSCULAR HGB 27.3 PG (27.0-31.0); MEAN CORPUSCULAR HGB CONC 31.4 G/DL (33.0-37.0); MEAN CORPUSCULAR VOLUME 86.8 FL (81.0-99.0); MEAN PLATELET VOLUME 9.8 FL (7.4-10.4); PLATELET COUNT 299 /CUMM (130-400); RBC DISTRIBUTION WIDTH 15.3 % (11.5-14.5); RED BLOOD CELL CT 5.33 /CUMM (4.20-5.40)
--- NOTE | 2016-04-04 05:50 | NUR ---
PT C/O FEELING COLD AND DIFFICULTY BREATHING DESPITE ATIVAN. PT GIVEN SOLUMEDROL AT 0510 AND MD AT BEDSIDE.
[2016-04-04 06:28] LABS: WHITE BLOOD CELL COUNT 16.6 /CUMM (4.8-10.8)
--- NOTE | 2016-04-04 07:02 | NUR ---
DR. LIM CALLED PT CONTINUES TO TO FEEL SHORT OF BREATH. PT REPOSITIONED ATTEMPTED TO GET COMFORTABLE. HEART RATE 108-112. MD AT BEDSIDE. RESPIRATORY RATE INCREASED TO 36-40. LUNG SOUNDS DIMINISHED BUT CLEAR. AWAITING FURTHER ORDERS
--- NOTE | 2016-04-04 07:56 | NUR ---
PT COMPLAINING OF SOB. SAT 90-92% ON BIPAP 30% FIO2. RATE 24 IPAP 16 EPAP 4. HOUSESTAFF AT BEDSIDE. IV ATIVAN GIVEN. NS @ 50 STARTED DUE TO PT NOT EATING OR DRINKING BECAUSE SHE CAN'T TOLERATE BEING OFF BIPAP. RESP APRIL AT BEDSIDE TO ADMINISTER TRC. WILL MONITOR.
[2016-04-04 08:00] VITALS: BP 154/96
--- NOTE | 2016-04-04 08:17 | PN- Resident CRCU ---
Subjective HPI/CRCU Issues: Patient was noted to be in significant respiratory distress yesterday with her ABG revealing respiratory acidosis and she was subsequently placed on BiPAP. One hour after being on BiPAP, she showed no improvement in her respiratory status and her ABG showed minimal improvement as well so she was transferred to the ICU. In the ICU, her respiratory status declined further despite being on BiPAP. After a detailed discussion involving multiple family members, decision was made to change code status to DNR/DNI including no aggressive measures, pressors or central lines. Objective Vital Signs & I&O Last 8 Hrs of Vitals and I&O: Vital Signs Date Time Temp Pulse Resp B/P Pulse O2 O2 Flow FiO2 Ox Delivery Rate 04/04 1623 93 BIPAP 30% 04/04 1622 87 93 04/04 1600 96 BIPAP 30% 04/04 1600 97.9 101 32 136/84 96 BIPAP 30% 04/04 1404 107 94 04/04 1200 98 BIPAP 30% 04/04 0935 91 97 04/04 0925 125 167/90 02 0925 125 167/90 04/04 0800 91 BIPAP 30% 04/04 0800 97.6 98 29 154/96 91 BIPAP 30% 04/04 0755 99 92 04/04 0600 90 94 04/04 0530 92 BIPAP 30% 04/04 0245 68 94 04/04 0038 69 93 04/04 0000 94 BIPAP 30% 04/04 0000 97.6 68 36 112/58 94 BIPAP 30% 04/03 2215 76 96 04/03 2039 91 BIPAP 30% 04/03 1932 79 93 Intake & Output 04/04 1600 Intake Total 458 Output Total 150 Balance 308 Intake, IV 338 Intake, Oral 120 Number 1 Bowel Movements Output, Urine 150 Patient 58.513 kg Weight Exam General Appearance: alert, awake, moderate respiratory distress, on BiPAP, oriented x3 Head: atraumatic, normal appearance Neck: supple Respiratory: markedly diminished breath sounds, few expiratory wheezes scattered throughout bilateral lung mistry Cardiovascular: regular rate/rhythm, normal S1 and S2, no murmurs, rubs or gallops Gastrointestinal: soft, non-tender, positive bowel sounds Extremities: 2+ edema on left lower extremity Cranial Nerves: no gross focal deficits noted Current Medications: Current Medications Sig/Tootie Start time Last Medication Dose Route Stop Time Status Admin Acetaminophen 650 MG Q6P PRN 03/30 1245 AC 04/03 PO 0054 Albuterol Sulfate 3 ML EVERY 4 HRS/AWAKE 04/03 1200 AC 04/04 INH 1619 Aspirin Buffered 81 MG DAILY 03/31 1000 AC 04/04 PO 0925 Azithromycin 250 MG DAILY 03/31 1000 DC 04/04 PO 0925 Benzonatate 100 MG TID 03/31 1000 AC 04/04 PO 0925 Budesonide/ 2 PUF BID 03/30 2200 AC 04/04 Formoterol Fumarate INH 1119 Ezetimibe 10 MG DAILY 03/31 1000 AC 04/04 PO 0925 Fenofibrate 48 MG DAILY 03/31 1000 AC 04/04 PO 0925 Guaifenesin 600 MG Q12 04/01 1000 AC 04/04 PO 0925 Guaifenesin 10 ML Q6P PRN 03/30 2145 AC 04/03 PO 0757 Heparin Sodium 5,000 UNIT Q8 03/30 1400 AC 04/04 (Porcine) SC 1442 Ipratropium [place] 2.5 ML EVERY 4 HRS/AWAKE 04/04 0815 AC 04/04 INH 1619 Levothyroxine Sodium 0.075 MG DAILY AC 03/31 0700 AC 04/04 PO 0356 Lorazepam 0.5 MG ONCE ONE 04/04 1500 DC 04/04 IV 04/04 1501 1448 Lorazepam 0.5 MG ONE ONE 04/04 1230 DC 04/04 IV 04/04 1231 1224 Lorazepam 0.5 MG ONCE ONE 04/04 0830 DC 04/04 IV 04/04 0831 0834 Lorazepam 0.5 MG ONCE ONE 04/04 0730 DC 04/04 IV 04/04 0731 0728 Lorazepam 0.5 MG DAILY NEEDED PRN 03/30 1245 AC 04/04 PO 04/06 1244 0356 Losartan Potassium 25 MG DAILY 03/31 1000 AC 04/04 PO 0925 Methylprednisolone 40 MG Q6 04/04 1200 AC 04/04 IV 1715 Methylprednisolone 40 MG Q8 04/03 2200 DC 04/04 IV 04/07 0000 0528 Metoprolol Succinate 50 MG DAILY 03/31 1000 AC 04/04 PO 0925 Nicotine 21 MG DAILY 03/30 1236 AC 04/04 TOP 0925 Pregabalin 150 MG BID 03/30 2200 AC 04/04 PO 0926 Sodium Chloride 1,000 ML Q13H 04/04 0730 AC 04/04 IV 04/04 2028 0732 Tiotropium [place] 1 PUF DAILY 03/31 1000 DC 04/03 INH 1126 Ursodiol 900 MG QPM 03/30 2199 AC 04/03 PO 2205 Results Results: Laboratory Tests 04/04 04/04 0840 0410 Blood Gas pH (7.35 - 7.45 PH) 7.32 L pCO2 (35 - 45 TORR) 69 *H pO2 (80 - 100 TORR) 86 HCO3 (21 - 28 MEQ/L) 35 H ABG O2 Sat (Measured) (>96.0 %) 95.0 L Carboxyhemoglobin (1.5 - 5.0 %) 1.2 L O2 Concentration % 40 Respiration Rate (BPM) 24 O2 Delivery Method BIPAP Vent Mode ST Expiratory Pressure (CM H2O P) 4 Inspiratory Pressure (CM H2O P) 16 Chemistry Sodium (137 - 145 mmol/L) 138 Potassium (3.5 - 5.1 mmol/L) 5.0 Chloride (98 - 107 mmol/L) 95 L Carbon Dioxide (22 - 30 mmol/L) 38 H Anion Gap (5 - 16) 6 BUN (7 - 17 mg/dL) 21 H Creatinine (0.5 - 1.0 mg/dL) 0.7 Estimated GFR (>60 ml/min) > 60 Glucose (65 - 99 mg/dL) 116 H Calcium (8.4 - 10.2 mg/dL) 9.6 Phosphorus (2.5 - 4.5 mg/dL) 3.0 Magnesium (1.6 - 2.3 mg/dL) 2.3 Total Bilirubin (0.2 - 1.3 mg/dL) 0.4 AST (14 - 36 U/L) 31 ALT (9 - 52 U/L) 42 Albumin (3.5 - 5.0 g/dL) 3.8 Hematology CBC w Diff NO MAN DIFF REQ WBC (4.8 - 10.8 /CUMM) 16.6 H RBC (4.20 - 5.40 /CUMM) 5.33 Hgb (12.0 - 16.0 G/DL) 14.5 Hct (37 - 47 %) 46.3 MCV (81.0 - 99.0 FL) 86.8 MCH (27.0 - 31.0 PG) 27.3 RDW (11.5 - 14.5 %) 15.3 H Plt Count (130 - 400 /CUMM) 299 MPV (7.4 - 10.4 FL) 9.8 Gran % (42.2 - 75.2 %) 90.1 H Lymphocytes % (20.5 - 51.1 %) 7.9 L Monocytes % (1.7 - 9.3 %) 2.0 Eosinophils % (0 - 5 %) 0 Basophils % (0.0 - 2.0 %) 0 L Absolute Granulocytes (1.4 - 6.5 /CUMM) 15.0 H Absolute Lymphocytes (1.2 - 3.4 /CUMM) 1.3 Absolute Monocytes (0.10 - 0.60 /CUMM) 0.3 Absolute Eosinophils (0.0 - 0.7 /CUMM) 0 Absolute Basophils (0.0 - 0.2 /CUMM) 0 PUBS MCHC (33.0 - 37.0 G/DL) 31.4 L Miscellaneous Phlebotomy Draw Site RIGHT RADIAL CXR Findings: Hyperinflation with emphysema. Increased interstitial markings are chronic without acute superimposed process. Impression/Plan Impression/Problem List Impression: 70 y/o F with PMHx of COPD who pressents with acute on chronic hypoxemic and hypercarbic respiratory failure, now on BiPAP. Problem List: 1. COPD EXACERBATION 2. Acute on chronic respiratory failure with hypoxia and hypercapnia 3. Hypothyroidism 4. End stage COPD 5. HTN (hypertension) Pain Ratin Tomorrow's Labs & Rationales: CBC and ICU bundle (ICU patient) Plan Respiratory: #Acute on chronic hypoxemic and hypercarbic respiratory failure: ABG this AM 7.32/69/86/35 with worsening respiratory acidosis. Respiratory status is deteriorating. Extremely poor prognosis in the setting of end-stage COPD. * Code status changed to DNR/DNI including no aggressive measures, central line placement or pressors after family discussion. * Continue BiPAP. Taper FiO2 to maintain SpO2 between 90-92%. * Administer Ativan as needed for agitation, tachycardia and tachypnea. * Solumedrol increased to 40 mg IV Q6H. * TRC and nebs. * Continue Mucinex 1 tab PO BID and Tessalon 100 mg PO TID. * Continue prior to admission Spiriva 1 puff daily and SYmbicort 2 puffs daily. * Continue azithromycin 250 mg PO BID. Infectious Diseases: Remains afebrile. Leukocytosis, reactive in the setting of steroid therapy. No signs or symptoms of infection. Cardiovascular: #HTN: * Continue prior to admission losartan 25 mg PO QD and metoprolol succinate ER 50 mg daily. #HLD: * Continue prior to admission fenofibrate and ezetimibe. #CAD: History of [place] s/p PCI with stent in 2006. * Continue daily low dose baby aspirin. Hematology: H/H stable. Metabolic: #Hypothyroidism: * Continue prior to admission levothyroxine 75 mcg PO AC. Alimentary: Regular diet. Neurological: AAO x3. No issues. Skin: No issues. DVT/Prophylaxis: mechanical, pharmacological Code Status: Do Not Resucitate/Intubat
--- NOTE | 2016-04-04 08:49 | NUR ---
0830: PT STILL COMPLAINING OF SOB, SAT 84% ON BIPAP 30%. HOUSESTAFF AT BEDSIDE. FIO2 INCREASED TO 40%, IV ATIVAN GIVEN PER EMAR. WILL MONITOR.
--- NOTE | 2016-04-04 09:19 | NUR ---
FIO2 TURNED DOWN TO 30% RATE CHANGED TO 28 BY RT CHEN
--- NOTE | 2016-04-04 09:40 | NUR ---
CXR DONE AT THIS TIME. MD COATES ON PHONE WITH MD EVANS. WILL MONITOR.
--- NOTE | 2016-04-04 09:44 | NUR ---
DR CHENG AT BEDSIDE. DISCUSSING POSSIBILITY FOR INTUBATION.
--- NOTE | 2016-04-04 10:12 | PN- Pulmonary ---
Subjective HPI/Critical Care Issues: Patient awake alert struggling with shortness of breath on BiPAP. She remains hypercarbic and respiratory failure. Objective Current Medications: Current Medications Sig/Tootie Start time Last Medication Dose Route Stop Time Status Admin Acetaminophen 650 MG Q6P PRN 03/30 1245 AC 04/03 PO 0054 Albuterol Sulfate 3 ML EVERY 4 HRS/AWAKE 04/03 1200 AC 04/04 INH 0755 Albuterol Sulfate 2 PUF EVERY 4 HRS/AWAKE 04/01 2000 DC 04/03 INH 0800 Albuterol Sulfate 3 ML Q4P PRN 04/01 1930 DC 04/03 INH 0737 Aspirin Buffered 81 MG DAILY 03/31 1000 AC 04/04 PO 0925 Azithromycin 250 MG DAILY 03/31 1000 DC 04/04 PO 0925 Benzonatate 100 MG TID 03/31 1000 AC 04/04 PO 0925 Budesonide/ 2 PUF BID 03/30 2200 AC 04/03 Formoterol Fumarate INH 2206 Ezetimibe 10 MG DAILY 03/31 1000 AC 04/04 PO 0925 Fenofibrate 48 MG DAILY 03/31 1000 AC 04/04 PO 0925 Guaifenesin 600 MG Q12 04/01 1000 AC 04/04 PO 0925 Guaifenesin 10 ML Q6P PRN 03/30 2145 AC 04/03 PO 0757 Heparin Sodium 5,000 UNIT Q8 03/30 1400 AC 04/04 (Porcine) SC 0529 Ipratropium [place] 2.5 ML EVERY 4 HRS/AWAKE 04/04 0815 AC INH Levothyroxine Sodium 0.075 MG DAILY AC 03/31 0700 AC 04/04 PO 0356 Lorazepam 0.5 MG ONCE ONE 04/04 0830 DC 04/04 IV 04/04 0831 0834 Lorazepam 0.5 MG ONCE ONE 04/04 0730 DC 04/04 IV 04/04 0731 0728 Lorazepam 0.5 MG ONE ONE 04/03 1645 DC 04/03 PO 04/03 1646 1704 Lorazepam 0.5 MG DAILY NEEDED PRN 03/30 1245 AC 04/04 PO 04/06 1244 0356 Losartan Potassium 25 MG DAILY 03/31 1000 AC 04/04 PO 0925 Methylprednisolone 40 MG Q8 04/03 2200 AC 04/04 IV 04/07 0000 0528 Methylprednisolone 40 MG Q8 03/30 2200 DC 04/03 IV 04/03 1401 1416 Metoprolol Succinate 50 MG DAILY 03/31 1000 AC 04/04 PO 0925 Nicotine 21 MG DAILY 03/30 1236 AC 04/04 TOP 0925 Pregabalin 150 MG BID 03/30 2200 AC 04/04 PO 0926 Sodium Chloride 1,000 ML Q13H 04/04 0730 AC 04/04 IV 04/04 2029 0732 Tiotropium [place] 1 PUF DAILY 03/31 1000 DC 04/03 INH 1126 Ursodiol 900 MG QPM 03/30 220 AC 04/03 PO 2205 Vital Signs & I&O Last 24 Hrs of Vitals and I&O: Vital Signs Date Time Temp Pulse Resp B/P Pulse O2 O2 Flow FiO2 Ox Delivery Rate 04/04 0925 125 167/90 04/04 0925 125 167/90 04/04 0800 91 BIPAP 30% 04/04 0800 97.6 98 29 154/96 91 BIPAP 30% 04/04 0755 99 92 04/04 0600 90 94 04/04 0530 92 BIPAP 30% 04/04 0245 68 94 04/04 0038 69 93 04/04 0000 94 BIPAP 30% 04/04 0000 97.6 68 36 112/58 94 BIPAP 30% 04/03 2215 76 96 04/03 2039 91 BIPAP 30% 04/03 1932 79 93 04/03 1718 95 BIPAP 30% 04/03 1622 81 99 04/03 1600 97 BIPAP 35% 04/03 1600 97.6 74 20 153/58 97 BIPAP 35% 04/03 1356 73 100 04/03 1200 99 BIPAP 35% 04/03 1151 76 98 04/03 1140 98.0 83 26 134/80 98 BIPAP 35% 04/03 1011 96 120/68 04/03 1011 96 120/68 Intake & Output 04/04 1600 04/04 0800 04/04 0000 Intake Total 71 131 Output Total 175 200 Balance -104 -69 Intake, IV 11 11 Intake, Oral 60 120 Output, Urine 175 200 Patient 129 lb Weight Oxygen saturation 30% is 91% exam for chest shows markedly diminished breath sounds there are occasional expiratory wheezing cardiac exam shows normal S1 and S2 without murmur exam is soft nontender chest x-ray yesterday without acute changes Impression/Plan Impression/Plan Impression/Plan: 70-year-old with end-stage COPD worsening hypercapnic respiratory failure now on BiPAP. I discussed goals of care with her and will pursue further discussions with her once he is able to be located. Message was left with her [id number] and has been. Recommendations: Increase IPAP to 20 EPAP to 6 respiratory rate 28 Taper FiO2 to saturations 90- 92%. Solu-Medrol can be increased to every 6 hours. I'm hopeful to continue discussions regarding direction of her care with her and family as it pertains to the utility of intubation.
--- NOTE | 2016-04-04 10:18 | NUR ---
PT TURNED TO RIGHT SIDE, APPEARS MORE COMFORTABLE. OXYGEN SATURATION 100% BIPAP SETTINGS, RATE 28, FIO2 35%. IPAP 20/ EPAP 6
--- NOTE | 2016-04-04 10:31 | RADIOLOGY REPORT ---
EXAMINATION: XR PORTABLE CHEST CLINICAL INFORMATION: Increasing shortness of breath and hypoxemia COMPARISON: Multiple prior studies most recently 04/03/2016. TECHNIQUE: Portable AP 85 degrees upright view of the chest was obtained. FINDINGS: The lungs are hyperinflated with changes of emphysema. There are chronic increased interstitial markings in the bilateral lungs. No superimposed consolidation or atelectasis is seen. The heart is not enlarged. IMPRESSION: Hyperinflation with emphysema. Increased interstitial markings are chronic without acute superimposed process.
--- NOTE | 2016-04-04 11:16 | NUR ---
AT BEDSIDE, PHONE CONVERSATION WITH DR CHENG. PT TO BE DNR/I. PER "LET HER GO". NO PRESSORS IF B/P DROPS.
--- NOTE | 2016-04-04 11:16 | Event Note ---
Event Note Event Note: The patient deteriorated in the morning with increased work of breathing with her respiratory rate in 30s, intermittently 40s. Oxygen saturation wet down to 86-87% and the patient became very agitated ad anxious. She received a total of 1 mg of IV Ativan, half and hour apart, FiO2 was increased from 30 to 40%. BiPAP settings were changed to 20/4 with RR 28. Over time, she became more comfortable with the new settings however her prognosis is very poor with advanced stage COPD. Continues to be on the BiPAP. Vitals: HR 85, RR 27, BP 139/65 Dr. Gomez had a detailed conversation with the patient's and daughter regarding her prognosis and goals of care. After reviewing the benefits and harm and her urrent medical condition the decision was made to change the code status to DNI/DNR with no aggressive measures, no pressers, no central lines. The code status has been changed to DNI/DNR.
[2016-04-04 16:00] VITALS: BP 136/84
--- NOTE | 2016-04-04 18:31 | NUR ---
PROVIDED PT MOUTH CARE. PT VOIDED ON BED BULLARD, HAD BM. TURNED AND REPOSITIONED, BOOSTED. WILL MONITOR.
--- NOTE | 2016-04-04 18:43 | NUR ---
PT'S B/P REMAINS ELEVATED 160'S/90'S. MD EVANS INFORMED. NO NEW ORDERS AT THIS TIME. MONITOR B/P AFTER ATIVAN ADMINISTRATION.
--- NOTE | 2016-04-04 20:30 | NUR ---
PT AGITATED AND RESTLESS. C/O DISCOMFORT AND INABLITY TO BREATH. PT APPEARS TIRED. PT REPOSITIONED FOR COMFORT AND EASE OF BREATH. PT BP 174/88 MANUALLY. PT ON BIPAP WITH FIO2 30% WITH SATS OF 90-91%. PT HR ST/SA 108-112. DR. TONG NOTIFIED OF ABOVE. DILAUDID IV x1 GIVEN. WILL CONTINUE TO MONITOR.
--- NOTE | 2016-04-04 21:00 | NUR ---
PT BP DOWN TO 88/42 MANUALLY. PT SEDATED BUT AROUSABLE TO STIMULI. PT REMAINS IN A SA BUT HEART RATE DOWN TO 84. BIPAP FIO2 INCREASED TO 40% BY RESPIRATORY TO MAINTAIN SATURATION ABOVE 92%. PT APEARS COMFORTABLE. DR. LINO NOTIFED AND WILL CONTINUE TO MONITOR BP.
--- NOTE | 2016-04-04 22:30 | NUR ---
PT BP IMPROVING. MD AT BEDSIDE. PT STILL RESTING COMFORTABLE. NOT AWAKE ENOUGH TO SWALLOW PILLS AT THIS TIME WILL REASSES. PT REPOSTIONED ONTO BACK, ABLE TO TOLERATE. ELBOW PROTECTORS APPLIED FOR RED BRUISED AREA AROUND ELBOW ARMS ALSO ELEVATED ON PILLOWS. WOUND CARE CONSULT PLACED.
[2016-04-05] VITALS: BP 122/68
[2016-04-05 04:28] LABS: ABSOLUTE BASOPHIL COUNT 0.1 /CUMM (0.0-0.2); ABSOLUTE EOSINOPHIL COUNT 0 /CUMM (0.0-0.7); ABSOLUTE GRANULOCYTE CT 14.3 /CUMM (1.4-6.5); ABSOLUTE LYMPH COUNT 1.4 /CUMM (1.2-3.4); ABSOLUTE MONOCYTE COUNT 0.5 /CUMM (0.10-0.60); BASOPHIL % 0.4 % (0.0-2.0); EOSINOPHIL % 0.1 % (0-5); HEMATOCRIT 45.3 % (37-47); MEAN CORPUSCULAR HGB 27.3 PG (27.0-31.0); MEAN CORPUSCULAR VOLUME 85.4 FL (81.0-99.0); MEAN PLATELET VOLUME 9.8 FL (7.4-10.4); PLATELET COUNT 309 /CUMM (130-400); RBC DISTRIBUTION WIDTH 15.6 % (11.5-14.5); RED BLOOD CELL CT 5.31 /CUMM (4.20-5.40); WHITE BLOOD CELL COUNT 16.2 /CUMM (4.8-10.8)
[2016-04-05 04:55] LABS: GRANULOCYTE % 88.3 % (42.2-75.2)
[2016-04-05 08:00] VITALS: BP 154/70
--- NOTE | 2016-04-05 09:40 | NUR ---
PT RESTLESS, SOB. TRYING TO SIT UP AT SIDE OF BED. RESP RATE 40. B/P 188/79 PULSE 130. IV ATIVAN GIVEN PER EMAR. 5MG IV LOPRESSOR GIVEN. 5 MINUTES LATER B/P 125/56, PULSE 86, RESP RATE 30. OXYGEN SAT 95%. NO CHANGES MADE TO BIPAP.
--- NOTE | 2016-04-05 09:45 | PN- Resident CRCU ---
Subjective HPI/CRCU Issues: Patient in ICU for acute on chronic respiratory distress, secondary to end-stage COPD. I followed up and examined the patient today. He is slightly agitated, in moderate-severe respiratory distress, on BiPAP, and just received her nebulization. She speaks in half sentences, and has classic tripod sign suggestive of respiratory distress and increased work of breathing. She has remained tachypneic and tachycardic at times of agitation yesterday, and also anxious requiring low-dose lorazepam when necessary. Her vitals are stable right now, no overnight issues otherwise. 24 Hour Events: See had further deterioration of her respiratory condition, and was made DNR/DNI by her , as the patient was not in a capacity to make the decision yesterday. Objective Vital Signs & I&O Last 8 Hrs of Vitals and I&O: Vital Signs Date Time Temp Pulse Resp B/P Pulse O2 O2 Flow FiO2 Ox Delivery Rate 04/05 09 130 188/79 04/05 0825 97 BIPAP 35% 04/05 0824 102 97 04/05 0800 BIPAP 35% 04/05 08 98.6 94 28 154/70 96 BIPAP 35% 04/05 0559 124 93 04/05 0430 97 BIPAP 35% Exam General Appearance: alert, awake, anxious, moderate distress Other Physical Findings: General Appearance: alert, awake, moderate respiratory distress, on BiPAP, oriented x3 Head: atraumatic, normal appearance Neck: supple Respiratory: markedly diminished breath sounds, few expiratory wheezes scattered throughout bilateral lung mistry Cardiovascular: regular rate/rhythm, normal S1 and S2, no murmurs, rubs or gallops Gastrointestinal: soft, non-tender, positive bowel sounds Extremities: 2+ edema on left lower extremity Cranial Nerves: no gross focal deficits noted Nutrition Nutrition: P.O. diet Current Medications: Current Medications Sig/Tootie Start time Last Medication Dose Route Stop Time Status Admin Acetaminophen 650 MG Q6P PRN 03/30 1245 AC 04/03 PO 0054 Albuterol Sulfate 3 ML EVERY 4 HRS/AWAKE 04/03 1200 AC 04/05 INH 0818 Aspirin Buffered 81 MG DAILY 03/31 1000 AC 04/04 PO 0925 Benzonatate 100 MG TID 03/31 1000 AC 04/04 PO 0925 Budesonide/ 2 PUF BID 03/30 2200 AC 04/04 Formoterol Fumarate INH 1119 Ezetimibe 10 MG DAILY 03/31 1000 AC 04/04 PO 0925 Fenofibrate 48 MG DAILY 03/31 1000 AC 04/04 PO 0925 Guaifenesin 600 MG Q12 04/01 1000 AC 04/04 PO 0925 Guaifenesin 10 ML Q6P PRN 03/30 2145 AC 04/03 PO 0757 Heparin Sodium 5,000 UNIT Q8 03/30 1400 AC 04/05 (Porcine) SC 0640 Hydromorphone HCl 0.6 MG ONCE ONE 04/04 2000 DC 04/04 IV 04/04 Ipratropium [place] 2.5 ML EVERY 4 HRS/AWAKE 04/04 0815 AC 04/05 INH 0818 Levothyroxine Sodium 0.075 MG DAILY AC 03/31 0700 AC 04/05 PO 0642 Lorazepam 0.5 MG ONCE ONE 04/05 0900 DC 04/05 IV 04/05 0901 0902 Lorazepam 1 MG ONCE ONE 04/05 0630 DC 04/05 IV 04/05 0631 0640 Lorazepam 0.5 MG ONCE ONE 04/04 1830 DC 04/04 IV 04/04 1831 1820 Lorazepam 0.5 MG ONCE ONE 04/04 1500 DC 04/04 IV 04/04 1501 1448 Lorazepam 0.5 MG ONE ONE 04/04 1230 DC 04/04 IV 04/04 1231 1224 Lorazepam 0.5 MG DAILY NEEDED PRN 03/30 1245 AC 04/04 PO 04/06 1244 0356 Losartan Potassium 25 MG DAILY 03/31 1000 AC 04/04 PO 0925 Methylprednisolone 40 MG Q6 04/04 1200 AC 04/05 IV 0640 Metoprolol Succinate 50 MG DAILY 03/31 1000 DC 04/04 PO 0925 Metoprolol Tartrate 5 MG Q6 04/05 0930 AC 04/05 IV 0927 Nicotine 21 MG DAILY 03/30 1236 AC 04/05 TOP 0922 Pregabalin 150 MG BID 03/30 2200 AC 04/04 PO 0926 Sodium Chloride 1,000 ML Q20H 04/05 0415 AC 04/05 IV 0436 Sodium Chloride 1,000 ML Q13H 04/04 0730 DC 04/04 IV 04/04 2029 0732 Ursodiol 900 MG QPM 03/30 2200 AC 04/03 PO 220 Impression/Plan Impression/Problem List Impression: 70 y/o F with PMHx of COPD who pressents with acute on chronic hypoxemic and hypercarbic respiratory failure, now on BiPAP. She is being managed in the ICU following issues: Respiratory: Acute on chronic hypoxemic hypercarbic respiratory failure This morning's ABG showed pH of 7.34, PCO2 60 PaO2 83, bicarbonate 32, saturation 94%, which is better than yesterday. The patient is still having respiratory distress, despite being on BiPAP. She has end-stage COPD and prognosis is guarded, and family also knows about it. Due to her condition, she was made DNR/DNI yesterday. She continues to have worse conditions, and per attending Dr. Gomez, he is going to have conversation with family () regarding possibility to change her CODE STATUS to comfort measures only today. -For her agitation, administering Ativan on when necessary basis -Continue IV Solu-Medrol at 40 mg every 6h -Continue total respiratory care and nebulizations -Continue Mucinex and Tessalon -Continue Spiriva and Symbicort Infectious Diseases: Remains afebrile. Leukocytosis, reactive in the setting of steroid therapy. No signs or symptoms of infection. Cardiovascular: #HTN: - Continue prior to admission, she was taking losartan 25 mg PO QD and metoprolol succinate ER 50 mg daily. - Since she cannot take any oral medications right now so metoprolol succinate has been changed to short-acting metoprolol intravenous 5 mg every 6 hours so total dose is 20mg per day, which is equivalent to long-acting metoprolol 50 mg orally per day. #HLD: - Continue prior to admission fenofibrate and ezetimibe. #CAD: History of [place] s/p PCI with stent in 2006. - Continue daily low dose baby aspirin. Hematology: H/H stable. Metabolic: #Hypothyroidism: - Continue prior to admission levothyroxine 75 mcg PO AC. Alimentary: Regular diet. Neurological: AAO x3. No issues. Skin: No issues. DVT prophylaxis: Heparin SQ TID CODE STATUS: DNR/DNI Problem List: 1. Acute on chronic respiratory failure with hypoxia and hypercapnia 2. End stage COPD 3. HTN (hypertension) 4. Hypothyroidism Pain Ratin Pain Location: cannot assess due to patient's condition Pain Goal: Pain 4 or less Pain Plan: prn Tomorrow's Labs & Rationales: CBC, ICU bundle to see if she has infection, and her renal function. ABG if condition changes. None if made comfort measures. Plan DVT/Prophylaxis: mechanical, pharmacological Code Status: Do Not Resucitate/Intubat
--- NOTE | 2016-04-05 10:21 | PN- Pulmonary ---
Subjective HPI/Critical Care Issues: Patient is lethargic on continuous BiPAP. Hypertension and tachycardia treated with Lopressor Objective Current Medications: Current Medications Sig/[place] Start time Last Medication Dose Route Stop Time Status Admin Acetaminophen 650 MG Q6P PRN 03/30 1245 AC 04/03 PO 0054 Albuterol Sulfate 3 ML EVERY 4 HRS/AWAKE 04/03 1200 AC 04/05 INH 0818 Aspirin Buffered 81 MG DAILY 03/31 1000 AC 04/04 PO 0925 Benzonatate 100 MG TID 03/31 1000 AC 04/04 PO 0925 Budesonide/ 2 PUF BID 03/30 2200 AC 04/04 Formoterol Fumarate INH 1119 Ezetimibe 10 MG DAILY 03/31 1000 AC 04/04 PO 0925 Fenofibrate 48 MG DAILY 03/31 1000 AC 04/04 PO 0925 Guaifenesin 600 MG Q12 04/01 1000 AC 04/04 PO 0925 Guaifenesin 10 ML Q6P PRN 03/30 2145 AC 04/03 PO 0757 Heparin Sodium 5,000 UNIT Q8 03/30 1400 AC 04/05 (Porcine) SC 0640 Hydromorphone HCl 0.6 MG ONCE ONE 04/04 2000 DC 04/04 IV 04/04 2000 202 Ipratropium [place] 2.5 ML EVERY 4 HRS/AWAKE 04/04 0815 AC 04/05 INH 0818 Levothyroxine Sodium 0.075 MG DAILY AC 03/31 0700 AC 04/05 PO 0642 Lorazepam 0.5 MG ONCE ONE 04/05 0900 DC 04/05 IV 04/05 0901 0902 Lorazepam 1 MG ONCE ONE 04/05 0630 DC 04/05 IV 04/05 0631 0640 Lorazepam 0.5 MG ONCE ONE 04/04 1830 DC 04/04 IV 04/04 1831 1820 Lorazepam 0.5 MG ONCE ONE 04/04 1500 DC 04/04 IV 04/04 1501 1448 Lorazepam 0.5 MG ONE ONE 04/04 1230 DC 04/04 IV 04/04 1231 1224 Lorazepam 0.5 MG DAILY NEEDED PRN 03/30 1245 AC 04/04 PO 04/06 1244 0356 Losartan Potassium 25 MG DAILY 03/31 1000 AC 04/04 PO 0925 Methylprednisolone 40 MG Q6 04/04 1200 AC 04/05 IV 0640 Methylprednisolone 40 MG Q8 04/03 2200 DC 04/04 IV 04/07 0000 0528 Metoprolol Succinate 50 MG DAILY 03/31 1000 DC 04/04 PO 0925 Metoprolol Tartrate 5 MG Q6 04/05 0930 AC 04/05 IV 0927 Nicotine 21 MG DAILY 03/30 1236 AC 04/05 TOP 0922 Pregabalin 150 MG BID 03/30 2200 AC 04/04 PO 0926 Sodium Chloride 1,000 ML Q20H 04/05 0415 AC 04/05 IV 0436 Sodium Chloride 1,000 ML Q13H 04/04 0730 DC 04/04 IV 04/04 2028 0732 Ursodiol 900 MG QPM 03/30 220 AC 04/03 PO 2205 Vital Signs & I&O Last 24 Hrs of Vitals and I&O: Vital Signs Date Time Temp Pulse Resp B/P Pulse O2 O2 Flow FiO2 Ox Delivery Rate 04/05 0927 130 188/79 04/05 0825 97 BIPAP 35% 04/05 0824 102 97 04/05 0800 98.6 94 28 154/70 96 BIPAP 35% 04/05 0559 124 93 04/05 0430 97 BIPAP 35% 04/05 0254 122 92 04/05 0122 91 97 04/05 0000 97 BIPAP 35% 04/05 0000 97.1 86 28 122/68 96 BIPAP 35% 04/04 2240 89 99 04/04 2030 95 BIPAP 40% 04/04 1907 95 BIPAP 30% 04/04 1906 103 93 04/04 1623 93 BIPAP 30% 04/04 1622 87 93 04/04 1600 96 BIPAP 30% 04/04 1600 97.9 101 32 136/84 96 BIPAP 30% 04/04 1404 107 94 04/04 1200 98 BIPAP 30% Intake & Output 04/05 1600 04/05 0800 04/05 0000 Intake Total 423 389 Output Total 250 100 Balance 173 289 Intake, IV 423 389 Intake, Oral 0 0 Number 0 1 Bowel Movements Output, Urine 250 100 Oxygen saturation preserved on FiO2 35% on BiPAP exam for chest markedly diminished breath sounds cardiac exam shows regular S1 and S2 without murmurs Impression/Plan Impression/Plan Impression/Plan: 70-year-old with end-stage COPD worsening hypercapnic respiratory failure now on BiPAP. I discussed goals of care with her and she has been made DNR/ DNI. Discussed options should she fail to improve inclusive of hospice with her family Recommendations: Increase IPAP to 20 EPAP to 6 respiratory rate 28 Taper FiO2 to saturations 90- 92%. Solu-Medrol can be increased to every 6 hours. Continue present level of treatment pending decisions on direction of care
--- NOTE | 2016-04-05 10:30 | NUR ---
AUTO CUFF READING 80'S/40'S. MANUAL B/P 100/60. DR BLACK IN TO SEE PT, SPOKE TO FAMILY ON THE PHONE REGARDING POSSIBLE CHANGE TO HOSPICE. PT IS CALM AND RELAXED AT THIS TIME. NO LABORED RESP. VSS. WILL MONITOR.
--- NOTE | 2016-04-05 11:50 | Event Note ---
Event Note Event Note: Patient continues to deteriorate despite being placed on BiPAP, and medications. She is already DNR/DNI, and deep possible plan of care from here on would be to continue same treatment, or change of CODE STATUS. Code status still on DNR/DNI. Dr Gomez discussed the case with patient's family member (but not her who is the decision maker), given her worsening condition and guarded prognosis. I haven't talked to patient's myself to confirm the comfort measures/hospice care, so patient is still on BiPAP and her medicines. Case management informed. 04/05/16: 1243 hrs Contacted patient's again. left a voicemail to call back. 1330hrs Patient's [id number] Desi Goodson called in to check if patient's needs to be present physically in the hospital to discuss plan of care. I explained her that indeed that he needs to visit the patient at least once and then decide on plan of care, including comfort measures or hospice or anything else. She said that patient's has difficuly driving by himself so he will com in later today and make the decision about plan of care. Resident update.
[2016-04-05 12:00] VITALS: BP 170/100
[2016-04-05 12:16] VITALS: BP 164/71
--- NOTE | 2016-04-05 12:19 | NUR ---
PT PULLING OFF BIPAP MASK, RESTLESS. REPOSITIONED, TRC GIVEN. NO RELIEF. IV ATIVAN GIVEN PER EMAR. IV SOLUMEDROL GIVEN WELL. B/P 164/71 AUTO. 170/100 MANUAL, PULSE 120'S. IV METOPROLOL GIVEN. PT CHANGED TO COMFORT MEASURES. WILL MONITOR.
--- NOTE | 2016-04-05 12:36 | NUR ---
PT CONTINUES TO PULL OFF BIPAP, REORIENTED PT. REPOSITIONED.
--- NOTE | 2016-04-05 12:59 | NUR ---
PT KEEPS TRYING TO SIT UP IN BED, PULLING OFF BIPAP MASK, REPOSITIONED TO RIGHT SIDE, MORPHINE 1X DOSE GIVEN AT THIS TIME PER EMAR. WILL MONITOR.
--- NOTE | 2016-04-05 14:25 | NUR ---
AT BEDSIDE, SWEARING, ANGRY. MD VICTORIA AT BEDSIDE.
--- NOTE | 2016-04-05 14:30 | NUR ---
PT HAD NO URINE OUTPUT FOR THE WHOLE 8 HOUR SHIFT. WILL BLADDER SCAN AND POSSIBLY PLACE GUERRA.
--- NOTE | 2016-04-05 15:53 | NUR ---
ATTEMPTED TO PLACE [facility]ER[facility], PT RESTLESS, AGITATED. AT BEDSIDE, YELLING AT THIS RN, SWEARING. FAMILY MEMBERS ATTEMPTING TO CALM . HOSPICE NURSE AT BEDSIDE AT THIS TIME TO SIGN PAPERS.
--- NOTE | 2016-04-05 16:41 | NUR ---
PT CONTINUES TO PULL AT BIPAP MASK, ONCE HOSPICE ORDERS PLACED IN COMPUTER WILL REMOVE BIPAP, PT MEDICATED WITH ATIVAN AND MORPINE PER EMAR.
--- NOTE | 2016-04-06 08:43 | Discharge Summary ---
Hospital Course Allergies: Coded Allergies: azathioprine (Severe, NAUSEA 05/13/15) oxycodone (Severe, ITCHING 05/13/15) risedronate sodium (Severe, PT OKAY WITH ATELVIA, COLD SWEATS, SEVERE N/D ) sulfamethoxazole (From BACTRIM) (Severe, NAUSEA, DIARRHEA AND FREQUENT URINATION 05/13/15) trimethoprim (From BACTRIM) (Severe, NAUSEA, DIARRHEA AND FREQUENT URINATION ) Discharge Instructions General Discharge Information Code Status: Do Not Resucitate/Intubat
== END 2016-04-05 16:40 | disposition hospice, home (50) | DRG 190 ==
LOC: ENRESERVDT → ENRESERVTM → CANRESERV → ERH 10:13 → DELPENDDIS 11:50 → CRI 11:50 → 2NB 11:50 → ERHI 11:50 → ENPENDDIS 11:50 → 2NB 13:54 → CRI 04-03 11:37
PROVIDERS: Dermatology; Emergency Medicine; Internal Medicine; Internal Medicine Infectious Disease; Internal Medicine Nephrology; ADMIT Internal Medicine
PROC: 5A09457 Assistance with Respiratory Ventilation, 24-96 Consecutive Hours, Continuous Positive Airway Pressure (ICD-10-PCS; principal; 2016-04-03)
DX: J44.1 Chronic obstructive pulmonary disease with (acute) exacerbation (principal); J96.01 Acute respiratory failure with hypoxia; F17.210 Nicotine dependence, cigarettes, uncomplicated; I25.10 Atherosclerotic heart disease of native coronary artery without angina pectoris; I11.9 Hypertensive heart disease without heart failure; Z95.5 Presence of coronary angioplasty implant and graft; I25.2 Old myocardial infarction; E78.5 Hyperlipidemia, unspecified; K21.9 Gastro-esophageal reflux disease without esophagitis; E03.9 Hypothyroidism, unspecified; M81.0 Age-related osteoporosis without current pathological fracture; D72.828 Other elevated white blood cell count; Z79.52 Long term (current) use of systemic steroids; Z66 Do not resuscitate; Z51.5 Encounter for palliative care
CPT/HCPCS: 2NBP; CCU; 36415; 81001; 82436; 87040; 87070; 87086; 87449; 87450; 87804; 87804-59; 93005; 93010; 96374; 96375; 99291; J0456; J0696; J1170; J1644; J2060; J2270; J2920; J2930; J3490; J7060

== ENCOUNTER 2016-04-05 16:45 | Inpatient (IN) | payer OTHER ==
[~2016-04-05 16:45] MED LIST changes: +FENOFIBRATE50 MG PO; +LYRICA150 M1 PO; +MEGARED OMEGA-1 EAC2 PO
[2016-04-06 08:00] VITALS: BP 120/60
--- NOTE | 2016-04-06 15:56 | PN- Gen Med ---
Assessment/Plan Assessment: 70 y.o. F with end-stage COPD now with acute on chronic hypercarbic and hypoxic respiratory failure secondary to exacerbation of COPD, admitted 04/05/16 to hospice service. Problem List: 1. End stage COPD 2. Acute on chronic respiratory failure with hypoxia and hypercapnia 3. COPD exacerbation Plan: Schedule Morphine 2mg IV every 3 hours ATC and every 1 hr as needed for dyspnea/ pain. Schedule ativan 1mg IV every 6 hours ATC and every 3hrs as needed for anxiety. Continue scopolamine patch every 72 hrs; add Robinul 0.2mg every 4 hrs as needed for congestion. Discussed with those present at bedside as well as nursing who were agreeable. Subjective Subjective: Family/friends at bedside. Pt has been receiving morphine every 3-5 hours, ativan x2. They note that she seems more restless/anxious just prior to every morphine dose she has been getting. Review of Systems Constitutional: Reports: see HPI. Objective Last 24 Hrs of Vital Signs/I&O Vital Signs Date Time Temp Pulse Resp B/P Pulse O2 O2 Flow FiO2 Ox Delivery Rate 04/06 0800 Nasal 3.0L Cannula 04/06 0800 98.4 100 16 120/60 84 Nasal 3.0L Cannula 04/06 0000 Nasal 3.0L Cannula 04/05 1700 BIPAP 35% Physical Exam General Appearance: Minimally responsive Cardiovascular: Regular Rate (RRR, HR 102) Lungs: Clear to Auscultation (O2 3lnp), mildly labored Extremities: mottling to bilat. feet
[2016-04-07 06:54] VITALS: BP 114/60
--- NOTE | 2016-04-07 17:02 | PN- Gen Med ---
Assessment/Plan Assessment: 70 y.o. F with end-stage COPD now with acute on chronic hypercarbic and hypoxic respiratory failure secondary to exacerbation of COPD, admitted 04/05/16 to hospice service. Problem List: 1. Acute on chronic respiratory failure with hypoxia and hypercapnia 2. End stage COPD Plan: Comfortable. Continue Morphine drip per protocol, scheduled and prn ativan. Subjective Subjective: Friends at bedside. They report had come in last evening and caused quite a commotion again, causing pt to become restless with increased dyspnea. Morphine drip was started at 2mg /hr. Today she has been comfortable, unresponsive. Receiving ativan scheduled every 6 hours and has received prn ativan x 4 in past 24 hrs. Review of Systems Constitutional: Reports: see HPI. Objective Last 24 Hrs of Vital Signs/I&O Vital Signs Date Time Temp Pulse Resp B/P Pulse O2 O2 Flow FiO2 Ox Delivery Rate 04/07 0800 Nasal 2.0L Cannula 04/07 0654 98.0 104 18 114/60 91 Nasal 3.0L Cannula 04/07 0000 Nasal 3.0L Cannula 04/06 2330 17 Physical Exam General Appearance: No Acute Distress HEENT: Atraumatic Cardiovascular: tachycardic Lungs: Clear to Auscultation (unlabored, O2 at 3lnp) Neurological: unresponsive Extremities: feet cool, mild bipedal edema Other Physical Findings: bang catheter with minimal sis urine
--- NOTE | 2016-04-09 08:30 | Discharge Summary ---
Visit Information Visit Dates Admission Date: 04/05/16 Discharge Date: 04/07/16 Hospital Course Course Attending Physician: NINA VÁZQUEZ MD Primary Care Physician: MENA LEE MD Hospital Course: 70 y.o. F with end-stage COPD now with acute on chronic hypercarbic and hypoxic respiratory failure secondary to exacerbation of COPD, admitted 04/05/16 to hospice service. She was kept comfortable with morphine drip and scheduled ativan to control her symptoms until she passed peacefully 04/07/16. Allergies: Coded Allergies: azathioprine (Severe, NAUSEA 05/13/15) oxycodone (Severe, ITCHING 05/13/15) risedronate sodium (Severe, PT OKAY WITH ATELVIA, COLD SWEATS, SEVERE N/D ) sulfamethoxazole (From BACTRIM) (Severe, NAUSEA, DIARRHEA AND FREQUENT URINATION 05/13/15) trimethoprim (From BACTRIM) (Severe, NAUSEA, DIARRHEA AND FREQUENT URINATION ) Disposition Summary Disposition Principal Diagnosis: Acute on chronic rrespiratory failure with hypoxia and hypercapnia Chronic obstructive pulmonary disease exacerbation End-stage COPD Additional Diagnosis: none Discharge Disposition: Discharge Instructions General Discharge Information Code Status: Hospice Patient's Diet: N/A Patient's Activity: N/A Follow-Up Instructions/Appts: N/A Copies To: MENA LEE MD Attending MD Review Statement Documenting Attending: NINA VÁZQUEZ MD
== END 2016-04-07 20:10 | disposition expired | DRG 190 ==
LOC: CRI 16:45 → 2NA 04-06 20:34
PROVIDERS: ADMIT Internal Medicine
DX: J44.1 Chronic obstructive pulmonary disease with (acute) exacerbation (principal); J96.22 Acute and chronic respiratory failure with hypercapnia; J96.21 Acute and chronic respiratory failure with hypoxia; Z51.5 Encounter for palliative care; E78.5 Hyperlipidemia, unspecified; I25.10 Atherosclerotic heart disease of native coronary artery without angina pectoris; I25.2 Old myocardial infarction; E03.9 Hypothyroidism, unspecified
CPT/HCPCS: 2NAP; CCU; J2270